=== PATIENT | female | born 1975 | race Caucasian/White ===

== ENCOUNTER 2019-07-22 21:45 | Inpatient (IN) | payer OTHER ==
[2019-07-22] MEDS ORDERED: NA CHLORIDE 0.9% 1,000 ML ONE (22:28)
[2019-07-22] MEDS ORDERED: ONDANSETRON 4 MG/2 ML VIAL ONE (22:28)
[2019-07-22 22:39] LABS: Absolute Lymphocytes (CBC) 0.8 K/uL (0.7-4.9); Basophils % 0.4 % (0-1.3); Hematocrit 23.7 % (36.0-45.0); MPV 8.8 fL (7.6-11.3); RBC Red Blood Cell Count 2.89 M/uL (3.86-4.86)
[2019-07-22 22:47] LABS: ALT/SGPT 15 U/L (12-78); AST/SGOT 13 U/L (15-37); Albumin 2.4 g/dL (3.4-5.0); Alkaline Phosphatase 46 U/L (45-117); BUN Blood Urea Nitrogen 91 mg/dL (7-18); Bicarbonate 24 mmol/L (21-32); Bilirubin Direct < 0.1 mg/dL (0-0.2); Bilirubin Total 0.2 mg/dL (0.2-1.0); Glucose Level 110 mg/dL (74-106); Lipase 330 U/L (73-393); Potassium 4.2 mmol/L (3.5-5.1); Protein, Total 6.3 g/dL (6.4-8.2); Sodium Level 139 mmol/L (136-145)
[2019-07-22 23:36] LABS: Barbiturates NEGATIVE (NEGATIVE); Benzodiazepines NEGATIVE (NEGATIVE); Cocaine NEGATIVE (NEGATIVE); METHAMPHETAM NEGATIVE (NEGATIVE); Methadone NEGATIVE (NEGATIVE); Opiates NEGATIVE (NEGATIVE); Phencyclidine NEGATIVE (NEGATIVE); THC Cannibis POSITIVE (NEGATIVE)
[2019-07-22 23:54] LABS: Urine Blood 2+ (NEG); Urine Glucose NEGATIVE (NEG); Urine Protein 2+ (NEG); Urine Specific Gravity 1.015 (1.005-1.030); Urine pH 5.5 (5.0-7.0)
[2019-07-23 00:14] LABS: Blood Morphology Comment NOT SEEN (NOT SEEN); Platelet Estimate ADEQ
[2019-07-23] MEDS ORDERED: NA CHLORIDE 0.9% 1,000 ML ONE ×3 (00:41→10:35)
--- NOTE | 2019-07-23 00:52 | ER ---
Nurse's Notes [facility] Name: Harper Whitmore Age: 43 yrs Sex: Female : 1975 Arrival Date: 07/22/2019 Time: 21:48 Bed 5 Private MD: Diagnosis: Dehydration;Acute kidney failure;Diarrhea, unspecified Presentation: 07/21 21:45 Chief complaint: Patient states: I live with 7 other people and there are 2 of them jb4 that we are not sure if they have it or not. Today I was walking around and almost past out, I have a cough but I also smoke, and have had a cough. Today I just wanted to get checked out because I don't feel right. EMS states: Pt reports nausea, vomiting, diarrhea and a cough. Pt reports having 2 roommates that tested positive for mcpherson virus, and wants to get checked. 21:45 Coronavirus screen: The patient has NOT traveled to a country currently being monitored jb4 by the [facility] within the last 14 days. Proceed with normal triage procedures. The patient has NOT had contact with any known and/or suspected case of coronavirus. Ebola Screen: No symptoms or risks identified at this time. 21:45 Method Of Arrival: EMS: [facility] jb4 21:45 Risk Assessment: Do you want to hurt yourself or someone else? Patient reports no jb4 desire to harm self or others. 21:45 Acuity: MICHAEL 3 jb4 21:45 Initial Sepsis Screen: Does the patient meet any 2 criteria? No. Patient's initial jb4 sepsis screen is negative. Does the patient have a suspected source of infection? No. Patient's initial sepsis screen is negative. 07/22 04:30 Onset of symptoms is unknown. rv Historical: - Allergies: 07/21 21:45 No Known Allergies; jb4 - Home Meds: 21:45 ferrous sulfate 325 mg (65 mg iron) Oral TbEC [Active]; furosemide 40 mg Oral tab jb4 [Active]; clonidine HCl 0.2 mg Oral tab [Active]; carvedilol 6.25 mg oral tab [Active]; - PMHx: 21:45 Hypertension; MRSA; Hernia; jb4 - PSHx: 21:45 Knee surgery; ; Hernia repair; debridement; jb4 - Immunization history:: Adult Immunizations unknown. - Social history:: Smoking status: Patient reports the use of cigarette tobacco products, smokes one pack cigarettes per day. Patient/guardian denies using alcohol, street drugs. Screenin/18 04:29 Abuse screen: Denies threats or abuse. Denies injuries from another. Nutritional rv screening: No deficits noted. Tuberculosis screening: No symptoms or risk factors identified. Fall Risk None identified. Assessment: 07/21 21:45 General: Appears in no apparent distress. uncomfortable, Behavior is calm, cooperative, jb4 appropriate for age. Pain: Complains of pain in abdomen Pain does not radiate. Pain currently is 5 out of 10 on a pain scale. Quality of pain is described as aching. Neuro: Level of Consciousness is awake, alert, obeys commands, confused, Oriented to person, place, time, situation. Cardiovascular: Patient's skin is warm and dry. Respiratory: Airway is patent Respiratory effort is even, unlabored, Respiratory pattern is regular, symmetrical. GI: Abdomen is flat, non-distended, Reports upper abdominal pain, nausea, vomiting. : No signs and/or symptoms were reported regarding the genitourinary system. EENT: No signs and/or symptoms were reported regarding the EENT system. Derm: Skin is healthy with good turgor, Skin is pink, warm \T\ dry. Musculoskeletal: Circulation, motion, and sensation intact. Range of motion: intact in all extremities. 22:45 Reassessment: Patient appears in no apparent distress at this time. Patient and/or jb4 family updated on plan of care and expected duration. Pain level reassessed. Patient is alert, oriented x 3, equal unlabored respirations, skin warm/dry/pink. 23:45 Reassessment: Pt is resting in bed with eyes closed, respirations are even and jb4 unlabored. No s/s of distress or pain are noted. 07/22 00:45 Reassessment: Patient appears in no apparent distress at this time. Patient and/or jb4 family updated on plan of care and expected duration. Pain level reassessed. Patient is alert, oriented x 3, equal unlabored respirations, skin warm/dry/pink. 01:42 Reassessment: Patient appears in no apparent distress at this time. Patient and/or jb4 family updated on plan of care and expected duration. Pain level reassessed. Patient is alert, oriented x 3, equal unlabored respirations, skin warm/dry/pink. Hospitalist is at the bedside examining patient. Vital Signs: 07/21 21:45 BP 132 / 98; Pulse 83; Resp 16; Temp 97.9(O); Pulse Ox 98% on R/A; Weight 83.01 kg (R); jb4 Height 5 ft. 5 in. (165.10 cm); Pain 5/10; 22:00 BP 147 / 99; Pulse 80; Resp 17; Pulse Ox 100% on R/A; rv 22:45 BP 153 / 100; Pulse 61; Resp 16; Pulse Ox 100% on R/A; rv 23:30 BP 151 / 77; Pulse 77; Resp 18; Pulse Ox 100% on R/A; jb4 07/22 01:00 BP 158 / 91; Pulse 73; Resp 16; Pulse Ox 99% on R/A; jb4 02:00 BP 149 / 101; Pulse 73; Resp 16; Pulse Ox 100% on R/A; jb4 07/21 21:45 Body Mass Index 30.45 (83.01 kg, 165.10 cm) jb4 ED Course: 07/21 21:45 Arm band placed on right wrist. jb4 21:48 Patient arrived in ED. jb4 21:49 Scott Delcid, ARCHIE is Primary Nurse. jb4 21:53 Alejandro Marinelli MD is Attending Physician. tw4 22:00 Triage completed. jb4 22:15 Initial lab(s) drawn, by sd, sent to lab. Inserted saline lock: 20 gauge in right jb4 antecubital area, using aseptic technique. Blood collected. 07/22 00:52 Vish Gillette MD is Hospitalizing Provider. tw4 02:13 CXR XRAY In Process Unspecified. EDMS 04:29 Patient has correct armband on for positive identification. Fall risk band placed. rv Placed in gown. electrode cleaner on. Pulse ox on. NIBP on. 04:29 No provider procedures requiring assistance completed. IV is patent, with fluids rv infusing freely, with good blood return, Patient admitted, IV remains in place. 07:26 Primary Nurse role handed off by Scott Delcid, RN bd Administered Medications: 07/21 22:54 Drug: NS 0.9% 1000 ml Route: IV; Rate: 1 bolus; Site: right antecubital; jb4 23:30 Follow up: Response: No adverse reaction; IV Status: Completed infusion; IV Intake: jb4 1000ml 22:54 Drug: Zofran (Ondansetron) 4 mg Route: IVP; Site: right antecubital; jb4 23:20 Follow up: Response: No adverse reaction; Nausea is decreased jb4 07/22 00:48 Drug: NS 0.9% 1000 ml Route: IV; Rate: 1 bolus; Site: right antecubital; jb4 02:15 Drug: Zofran (Ondansetron) 4 mg Route: IVP; Site: left antecubital; jb4 02:24 Drug: GI Cocktail without - (Maalox Suspension 30 ml, Lidocaine Liquid 2 % 15 jb4 ml) Route: PO; Intake: 07/21 23:30 IV: 1000ml; Total: 1000ml. jb4 Outcome: 07/22 00:51 Discharge ordered by MD. tw4 00:52 Decision to Hospitalize by Provider. tw4 04:29 Admitted to ER Hold. Please see [facility] for further documentation. rv 04:29 Condition: good 04:29 Discharge instructions given to patient, Instructed on the need for admit, Demonstrated understanding of instructions. 08:27 Patient left the ED. sv Signatures: Dispatcher [employer] EDMS Elle Belcher Stephanie RN Scott Nugent RN RN jb4 Wadley, Terrence, MD MD Grupo Mercado RN RN rv Corrections: (The following items were deleted from the chart) 07/21 22:00 21:45 Coronavirus screen: The patient has NOT traveled to a country currently being jb4 monitored by the [facility] within the last 14 days. Proceed with normal triage procedures. The patient HAS HAD contact with a known and/or suspected case of coronavirus. The patient DOES HAVE a fever and/or cough. Mask placed on patient and transported to a negative pressure isolation room. jb4
--- NOTE | 2019-07-23 00:54 | EDPHYS ---
Physician Documentation [facility] Name: Harper Whitmore Age: 43 yrs Sex: Female : 1975 Arrival Date: 07/22/2019 Time: 21:48 Bed 5 Private MD: ED Physician Alejandro Marinelli HPI: 07/21 22:09 This 43 yrs old Female presents to ER via EMS with complaints of N/V. tw4 22:09 The patient presents to the emergency department with nausea, that is moderate, tw4 vomiting. Onset: The symptoms/episode began/occurred today. Possible causes: unknown. The symptoms are aggravated by nothing. The symptoms are alleviated by nothing. The patient has not experienced similar symptoms in the past. Historical: - Allergies: 21:45 No Known Allergies; jb4 - Home Meds: 21:45 ferrous sulfate 325 mg (65 mg iron) Oral TbEC [Active]; furosemide 40 mg Oral tab jb4 [Active]; clonidine HCl 0.2 mg Oral tab [Active]; carvedilol 6.25 mg oral tab [Active]; - PMHx: 21:45 Hypertension; MRSA; Hernia; jb4 - PSHx: 21:45 Knee surgery; ; Hernia repair; debridement; jb4 - Immunization history:: Adult Immunizations unknown. - Social history:: Smoking status: Patient reports the use of cigarette tobacco products, smokes one pack cigarettes per day. Patient/guardian denies using alcohol, street drugs. ROS: 22:09 Constitutional: Negative for fever, chills, and weight loss, Eyes: Negative for injury, tw4 pain, redness, and discharge, Cardiovascular: Negative for chest pain, palpitations, and edema, Respiratory: Negative for shortness of breath, cough, wheezing, and pleuritic chest pain. 22:09 Abdomen/GI: Positive for nausea and vomiting, nausea, vomiting, Negative for abdominal pain, nausea, vomiting, and diarrhea, diarrhea, constipation, abdominal cramps, abdominal distension, anorexia, dysphagia, hematemesis, black/tarry stool, rectal pain, rectal bleeding. Exam: 22:09 Constitutional: This is a well developed, well nourished patient who is awake, alert, tw4 and in no acute distress. Head/Face: Normocephalic, atraumatic. Chest/axilla: Normal chest wall appearance and motion. Nontender with no deformity. No lesions are appreciated. Cardiovascular: Regular rate and rhythm with a normal S1 and S2. No gallops, murmurs, or rubs. Normal PMI, no JVD. No pulse deficits. Respiratory: Lungs have equal breath sounds bilaterally, clear to auscultation and percussion. No rales, rhonchi or wheezes noted. No increased work of breathing, no retractions or nasal flaring. Abdomen/GI: Soft, non-tender, with normal bowel sounds. No distension or tympany. No guarding or rebound. No evidence of tenderness throughout. Back: No spinal tenderness. No costovertebral tenderness. Full range of motion. MS/ Extremity: Pulses equal, no cyanosis. Neurovascular intact. Full, normal range of motion. Neuro: Awake and alert, GCS 15, oriented to person, place, time, and situation. Cranial nerves II-XII grossly intact. Motor strength 5/5 in all extremities. Sensory grossly intact. Cerebellar exam normal. Normal gait. Vital Signs: 21:45 BP 132 / 98; Pulse 83; Resp 16; Temp 97.9(O); Pulse Ox 98% on R/A; Weight 83.01 kg (R); jb4 Height 5 ft. 5 in. (165.10 cm); Pain 5/10; 22:00 BP 147 / 99; Pulse 80; Resp 17; Pulse Ox 100% on R/A; rv 22:45 BP 153 / 100; Pulse 61; Resp 16; Pulse Ox 100% on R/A; rv 23:30 BP 151 / 77; Pulse 77; Resp 18; Pulse Ox 100% on R/A; 4 07/22 01:00 BP 158 / 91; Pulse 73; Resp 16; Pulse Ox 99% on R/A; 4 02:00 BP 149 / 101; Pulse 73; Resp 16; Pulse Ox 100% on R/A; 4 07/21 21:45 Body Mass Index 30.45 (83.01 kg, 165.10 cm) [facility] MDM: 07/21 21:53 Patient medically screened. 07/21 21:53 Order name: Basic Metabolic Panel; Complete Time: 00:15 4 07/22 00:16 Interpretation: Normal except: CL 108; CRE 2.50; BUN 91; GLUC 110; GFR 21. tw07/21 21:53 Order name: CBC with Diff; Complete Time: 00:15 [facility] 07/22 00:16 Interpretation: Normal except: RBC 2.89; HGB 7.8; HCT 23.7; MCH 26.8; LYM% 10.0; JAENNE% tw4 85.7; RDW 17.9. 07/21 21:53 Order name: Creatinine for Radiology; Complete Time: 00:15 [facility] 07/22 00:16 Interpretation: Normal except: CRE 2.46; GFR 21. 07/21 21:53 Order name: Hepatic Function; Complete Time: 00:15 [facility] 07/22 00:16 Interpretation: Normal except: TP 6.3; ALB 2.4; GLOB 3.9; A/G 0.6; AST 13. 07/21 21:53 Order name: Lipase; Complete Time: 00:15 [facility] 07/22 00:17 Interpretation: Within normal limits: LIP 330. 07/21 21:56 Order name: Urine Drug Screen; Complete Time: 00:15 [facility] 07/22 00:16 Interpretation: Normal except: THC POSITIVE. 07/21 22:48 Order name: Urine Dipstick--Ancillary (enter results); Complete Time: 00:15 [facility] 07/22 00:17 Interpretation: Normal except: UPROT 2+; UBLD 2+. 07/21 22:48 Order name: Urine --Ancillary (enter results); Complete Time: 00:15 [facility] 07/22 00:17 Interpretation: Within normal limits: URINE PREG NEG. 07/21 23:11 Order name: Manual Differential; Complete Time: 00:15 [facility] 07/22 00:17 Interpretation: Normal except: SEGS 85; LYM 12. 07/22 02:29 Order name: Type and Screen EDMI 07/22 02:29 Order name: Ferritin EDMI 07/22 02:29 Order name: Transferrin Sat/Iron Binding EDMI 07/22 02:29 Order name: Comprehensive Metabolic Panel EDMI 07/22 02:29 Order name: Comprehensive Metabolic Panel EDMI 07/22 01:43 Order name: CXR XRAY tw 07/22 02:29 Order name: CONS Pharmacy Consult EDMI 07/22 02:29 Order name: CONS Pharmacy Consult EDMS 07/22 02:29 Order name: CONS Physician Consult EDMS 07/22 02:29 Order name: Heart Healthy EDMS 07/22 02:29 Order name: EKG Electrocardiogram EDMS 07/22 02:29 Order name: EKG Electrocardiogram EDMS 07/22 02:29 Order name: Occult Blood EDMS 07/22 02:31 Order name: UR CREAT EDMS 07/22 02:31 Order name: UR SODIUM EDMS 07/22 04:23 Order name: ABO/RH no charge EDMS 07/21 21:53 Order name: IV Saline Lock; Complete Time: 22:17 tw4 07/21 21:53 Order name: Labs collected and sent; Complete Time: 22:17 tw4 07/21 21:56 Order name: Urine Dipstick-Ancillary (obtain specimen); Complete Time: 22:42 tw4 07/22 02:29 Order name: EKG Electrocardiogram EDMS 07/22 02:29 Order name: EKG Electrocardiogram EDMS 07/22 02:31 Order name: EKG Electrocardiogram EDMS 07/22 02:31 Order name: EKG Electrocardiogram EDMS 07/22 02:31 Order name: EKG Electrocardiogram EDMS 07/22 02:31 Order name: EKG Electrocardiogram EDMS 07/22 02:31 Order name: EKG Electrocardiogram EDMS 07/22 02:31 Order name: EKG Electrocardiogram EDMS 07/22 02:31 Order name: EKG Electrocardiogram EDMS Administered Medications: 22:54 Drug: NS 0.9% 1000 ml Route: IV; Rate: 1 bolus; Site: right antecubital; jb4 23:30 Follow up: Response: No adverse reaction; IV Status: Completed infusion; IV Intake: jb4 1000ml 22:54 Drug: Zofran (Ondansetron) 4 mg Route: IVP; Site: right antecubital; jb4 23:20 Follow up: Response: No adverse reaction; Nausea is decreased jb4 07/22 00:48 Drug: NS 0.9% 1000 ml Route: IV; Rate: 1 bolus; Site: right antecubital; jb4 02:15 Drug: Zofran (Ondansetron) 4 mg Route: IVP; Site: left antecubital; jb4 02:24 Drug: GI Cocktail without - (Maalox Suspension 30 ml, Lidocaine Liquid 2 % 15 jb4 ml) Route: PO; Disposition: 07/23/19 00:52 Hospitalization ordered by Vish Gillette for Inpatient Admission. Preliminary diagnosis are Dehydration, Acute kidney failure, Diarrhea, unspecified. - Bed requested for Telemetry/MedSurg (Inpatient). - Status is Inpatient Admission. sv - Condition is Stable. - Problem is new. - Symptoms are unchanged. Signatures: Dispatcher [employer] Louisa Bolden RN RN sv Webb, Martha, RN RN mw Bryson, James, RN RN jb4 Alejandro Marinelli MD MD tw4 Corrections: (The following items were deleted from the chart) 00:52 00:51 07/23/2019 00:51 Discharged to Home. Impression: Diarrhea, unspecified; Acute tw4 kidney failure; Dehydration. Condition is Stable. Forms are Medication Reconciliation Form, Thank You Letter, Antibiotic Education, Prescription Opioid Use. Follow up: Private Physician; When: Upon discharge from the Emergency Department; Reason: Recheck today's complaints, Continuance of care, Re-evaluation by your physician. Problem is new. Symptoms have improved. tw4 03:08 00:52 Hospitalization Ordered by Vish Gillette MD for Inpatient Admission. Preliminary diagnosis is Dehydration; Acute kidney failure; Diarrhea, unspecified. Bed requested for Telemetry/MedSurg (Inpatient). Status is Inpatient Admission. Condition is Stable. Problem is new. Symptoms are unchanged. tw4 05:49 03:08 07/23/2019 00:52 Hospitalization Ordered by Vish Gillette MD for Inpatient Admission. Preliminary diagnosis is Dehydration; Acute kidney failure; Diarrhea, unspecified. Bed requested for [facility] ER HOLD. Status is Inpatient Admission. Condition is Stable. Problem is new. Symptoms are unchanged. 08:27 05:49 07/23/2019 00:52 Hospitalization Ordered by Vish Gillette MD for Inpatient sv Admission. Preliminary diagnosis is Dehydration; Acute kidney failure; Diarrhea, unspecified. Bed requested for Telemetry/MedSurg (Inpatient). Status is Inpatient Admission. Condition is Stable. Problem is new. Symptoms are unchanged.
[2019-07-23] MEDS ORDERED: ONDANSETRON 4 MG/2 ML VIAL ONE (02:13)
[2019-07-23] MEDS ORDERED: MAGNE/ALUM HYDROXD 30 ML UCUP ONE (02:21)
[2019-07-23] MEDS ORDERED: LIDOCAINE VISCOUS 2% SOLN 15 ML UDC ONE (02:22)
[2019-07-23] MEDS ORDERED: ONDANSETRON 4 MG/2 ML VIAL IV PRN ×3 (02:23→19:39)
[2019-07-23] MEDS ORDERED: LORAZEPAM 0.5 MG TABLET PO PRN (02:26)
[2019-07-23] MEDS ORDERED: HYDRALAZINE HCL 20 MG/ML VIAL IV PRN (02:26)
[2019-07-23] MEDS ORDERED: GUAIFENESIN/DM 5 ML UCUP PO PRN (02:26)
[2019-07-23] MEDS ORDERED: ALBUTEROL 2.5 MG/3 ML NEB SOL NEB PRN (02:26)
--- NOTE | 2019-07-23 02:35 | P.HP ---
Certification for Inpatient With expected LOS: >2 Midnights Patient will require the following post-hospital care: None Practitioner: I am a practitioner with admitting privileges, knowledge of patient current condition, hospital course, and medical plan of care. Services: Services provided to patient in accordance with Admission requirements found in Title 42 Section 412.3 of the Code of Federal Regulations Patient History Date of Service: 07/23/19 Reason for admission: Cough dizziness History of Present Illness: 43-year-old female with history of hypertension, states she was previously homeless but recently started taking her blood pressure medication 1 - week ago presents to the hospital today because of feeling of dizziness, with transient Vertigo today. She also had series of loose bowel movement but no overt diarrhea. She admits to some nausea with 1 episode of vomiting today. She denies any history of kidney injury in the past. On arrival in the ED she was noted with elevated creatinine of 2.5 with BUN of 94 she has been admitted for acute renal failure. She also had low hemoglobin of 7.8. She denies any hematochezia Home medications list reviewed: No - Past Medical/Surgical History Has patient received pneumonia vaccine in the past: No Diabetic: No -: Hypertension -: Medication nonadherence Past Surgical History: Patient denies surgical history Psychosocial/ Personal History: initially homelessbut currently working on disability - Social History Smoking Status: Current every day smoker Counseled patient to stop smoking for: more than 10 minutes Smoking therapy provided: Yes Patient receptive to therapy: Yes Alcohol use: No CD- Drugs: Yes Review of Systems General: Weakness, Unremarkable Eyes: Unremarkable Respiratory: Cough, Other (History of contact with someone recently positive for covid 19) Gastrointestinal: Nausea, Vomiting Genitourinary: Unremarkable Musculoskeletal: Unremarkable Integumentary: Unremarkable Neurological: Weakness Physical Examination - Physical Exam General: Alert, In no apparent distress, Oriented x3, Obese HEENT: Atraumatic, Normocephalic, PERRLA Neck: 2+ carotid pulse no bruit, JVD not distended Respiratory: Clear to auscultation bilaterally, Crackles/rales (few) Cardiovascular: Regular rate/rhythm, Normal S1 S2 Capillary refill: <2 Seconds Gastrointestinal: Normal bowel sounds, Soft and benign, Non-distended Musculoskeletal: No clubbing, No swelling, No contractures Integumentary: No rashes, No breakdown Neurological: Normal gait, Normal speech, Normal strength at 5/5 x4 extr External genitalia: No edema, No lesions - Studies Laboratory Data (last 24 hrs) 07/22/19 22:15: Creatinine 2.46 H 07/22/19 22:15: WBC 7.9, Hgb 7.8 L*, Hct 23.7 L, Plt Count 194 07/22/19 22:15: Sodium 139, Potassium 4.2, BUN 91 H, Creatinine 2.50 H, Glucose 110 H, Total Bilirubin 0.2, AST 13 L, ALT 15, Alkaline Phosphatase 46, Lipase 330 Assessment and Plan - Problems (Diagnosis) (1) ARF (acute renal failure) Current Visit: Yes Status: Acute (2) Anemia Current Visit: Yes Status: Acute (3) HTN (hypertension) Current Visit: Yes Status: Acute Discharge Plan: Home Plan to discharge in: 48 Hours - Advance Directives Does patient have a Living Will: No Does patient have a Durable POA for Healthcare: No - Code Status/Comfort Care Code Status Assessed: Yes Code Status: Full Code Physician Review: Patient Assessed, Agree with Above Assessment and Plan Physician Review Additional Text: # acute renal failure-likely due to pre in a given marked elevation in BUN -obtain a urine sodium/creatinine to calculate fraction excretion of sodium. -start gentle IV fluid with normal saline follow-up -will consult Nephrology to follow in a.m. - urinalysis positive for protein, may need random urine protein creatinine ratio # anemia-unclear etiology - will obtain stool for Occult blood --obtain iron profile may need IV iron loading -follow repeat H and H if trended down would need PRBC -we will type and cross 2 units # hypertension-resume home regimen of clonidine/amlodipine Dex IV hydralazine p.r.n. # DVT prophylaxis-subcutaneous Lovenox for now # history of exposure to covid 19-since absence of fever will hold off testing for now -we will obtain a chest x-ray
[2019-07-23] MEDS ORDERED: NA CHLORIDE 0.9% 250 ML IV SCH (03:00)
[2019-07-23] MEDS: NA CHLORIDE 0.9% 1,000 ML IV SCH ×2 (03:00→10:31)
[2019-07-23 03:51] LABS: Ferritin 17.7 ng/mL (8-388)
[2019-07-23 04:10] VITALS: BMI 30.4
[2019-07-23] MEDS ORDERED: PANTOPRAZOLE 40MG TABLET PO SCH (07:30)
--- NOTE | 2019-07-23 08:52 | RAD REPORT ---
EXAM DESCRIPTION: RAD - Chest Single View - 07/23/2019 2:11 am CLINICAL HISTORY: COUGH Chest pain. COMPARISON: No comparisons FINDINGS: Portable technique limits examination quality. The lungs are grossly clear. The heart is normal in size. No displaced fractures. IMPRESSION: No acute intrathoracic process suspected.
[2019-07-23] MEDS ORDERED: ENOXAPARIN 30 MG/0.3 ML SQ SCH (09:00)
[2019-07-23] MEDS ORDERED: NICOTINE 21 MG/PAT TD SCH (09:00)
[2019-07-23] MEDS ORDERED: GUAIFENESIN 600 MG SA TAB PO SCH (09:00)
[2019-07-23] MEDS ORDERED: AMLODIPINE 10 MG TAB PO SCH (09:00)
[2019-07-23] MEDS ORDERED: cloNIDine HCL 0.1 MG TAB PO SCH (09:00)
[2019-07-23 09:30] VITALS: O2SAT 100
[2019-07-23 09:38] LABS: Absolute Lymphocytes (CBC) 0.9 K/uL (0.7-4.9); Basophils % 0.3 % (0-1.3); Hematocrit 14.6 % (36.0-45.0); Lymphocytes % 17.9 % (15.3-44.8); MPV 8.2 fL (7.6-11.3); RBC Red Blood Cell Count 1.78 M/uL (3.86-4.86)
[2019-07-23 09:48] LABS: Albumin 1.9 g/dL (3.4-5.0); Bilirubin Total 0.1 mg/dL (0.2-1.0); Potassium 3.7 mmol/L (3.5-5.1); Protein, Total 4.5 g/dL (6.4-8.2)
[2019-07-23 10:04] LABS: Hematocrit 15.2 % (36.0-45.0)
[2019-07-23] MEDS ORDERED: FUROSEMIDE 20 MG/ 2ML VIAL IV PRN ×2 (10:17→21:00)
--- NOTE | 2019-07-23 10:24 | RAD REPORT ---
EXAM DESCRIPTION: CT - Head Brain Wo Cont - 07/23/2019 10:11 am CLINICAL HISTORY: s/p fall, head trauma, headache COMPARISON: No comparisons TECHNIQUE: Axial 5 mm thick images of the head were obtained without IV contrast. All CT scans are performed using dose optimization technique as appropriate and may include automated exposure control or mA/KV adjustment according to patient size. FINDINGS: No intracranial hemorrhage, mass, edema or shift of mid-line structures. No acute infarcti on changes seen. No abnormal extra-axial fluid collections. Ventricles are normal. No measurable scal p hematoma. No globe or orbital content injury evident. Mastoid air cells are clear. Polyp or retention cyst in the left maxillary sinus. No acute bony findings. IMPRESSION: No hemorrhage or other acute intracranial finding. No skull fracture or measurable scalp hematoma.
--- NOTE | 2019-07-23 10:29 | RAD REPORT ---
EXAM DESCRIPTION: RAD - Hip Bilateral With Pelvis - 07/23/2019 10:12 am CLINICAL HISTORY: Fall, pelvic and hip pain COMPARISON: None. TECHNIQUE: AP view of the pelvis and hip joints was obtained with frogleg views of each hip joint. FINDINGS: There is a thin lucent line present in the right acetabulum the cannot be confirmed as bon es summation artifact. Nondisplaced fracture of the acetabulum is suspected and follow-up thin sectio n CT imaging of the right hip joint is recommended. The patient also has advanced for age degenerativ e change at the right hip joint. AVN is not suspected. Elsewhere the pelvis is intact. No left hip joint or proximal left femur abnormality seen. IMPRESSION: Suspected nondisplaced fracture of the right acetabulum. Correlation is needed with righ t hip symptoms. Follow-up thin section CT imaging of the hip joint could be performed to evaluate for fracture versus summation artifact.
[2019-07-23] MEDS ORDERED: PANTOPRAZOLE INJ 80 MG in NA CHLORIDE 0.9% 250 ML IV SCH (12:00)
[2019-07-23] MEDS ORDERED: PANTOPRAZOLE 40 MG INJ IVP ONE (12:05)
[2019-07-23] MEDS ORDERED: SODIUM CHLORIDE 0.9% 10ML INJ IV PRN (12:05)
[2019-07-23 12:09] LABS: Protime INR 1.01
--- NOTE | 2019-07-23 12:30 | RAD REPORT ---
EXAM DESCRIPTION: CT - Hip Right Wo Con - 07/23/2019 12:20 pm CLINICAL HISTORY: right acetabulum fracture Right hip pain COMPARISON: No comparisons FINDINGS: Bony fragmentation is seen along the superior aspect of the right acetabulum. The fragment s appear well corticated favoring that this does not represent an acute finding. 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 An acute fracture is not identified. No dis location seen. No CT finding to indicate AVN. IMPRESSION: No acute fracture is seen. There is moderate degenerative change involving the right hip with corticated bony fragments about the superior acetabulum likely related to previous injury or ar thritis. All CT scans are performed using dose optimization technique as appropriate and may include automated exposure control or mA/KV adjustment according to patient size.
[2019-07-23] MEDS: MORPHINE 2 MG/ML SYR IV PRN ×2 (14:43→20:07)
[2019-07-23] MEDS ORDERED: POTASSIUM CL SA 10 MEQ TAB PO ONE (15:00)
[2019-07-23] MEDS ORDERED: SOD FERRIC GLUC COMPLX/SUCROSE 250 MG in NA CHLORIDE 0.9% 250 ML IV SCH (15:00)
--- NOTE | 2019-07-23 15:30 | RAD REPORT ---
EXAM DESCRIPTION: US - Renal Ultrasound-Complete - 07/23/2019 2:56 pm CLINICAL HISTORY: CHILO COMPARISON: No comparisons FINDINGS: Both kidneys show prominent echogenic cortical tissue. Renal margins are poorly defined, p articularly on the left. Right kidney is grossly 10.5 x 5 x 5 cm. Left kidney is grossly 11 x 6 x 5 c m. No hydronephrosis identifiable. No measurable mass lesion of either kidney. Urinary bladder is mostly contracted. No gross abnormality seen. IMPRESSION: Significant bilateral medical renal disease. No hydronephrosis is identified. Detail is limited due to the medical renal disease and body habitus. Mass lesion not suspected.
[2019-07-23] MEDS ORDERED: NA CHLORIDE 0.9% 250 ML ONE (15:43)
--- NOTE | 2019-07-23 19:03 | CON ---
Date of Consultation: 07/23/2019 Reason For Consultation: Elevated BUN and creatinine, fluid management. History Of Present Illness: This is a pleasant 43-year-old female with significant past medical history of hypertension. Apparently, the patient was homeless recently, started taking her medication, then started having dizziness and weakness. Patient came to the hospital, found to have elevation in BUN and creatinine. For that reason, we have been consulted. Patient has been taking ibuprofen on and off. Denies any nausea, any vomiting. Primary workup shows significant anemia with elevation of creatinine at 2.5. There is no recent exposure to contrast reviewing the record for the patient. Patient denied any fever, any chills. Past Medical History: Hypertension. Past Surgical History: Negative. Family History: Positive for hypertension. Social History: Active smoker. Active alcohol. Denies drug abuse. Review of Systems: head and neck no headache, has dizziness. GI: No nausea, no vomiting. : No polyuria, no dysuria, no hematuria. 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 Respiratory: No shortness of breath. Cardiovascular: No chest pain. Endocrine: No polydipsia. Skin: No rash. Neuro: Has dizziness. Musculoskeletal: Generalized fatigue. Physical Examination: Vital Signs: When I saw the patient, blood pressure of 140/88, pulse of 84. The patient had good urine output. Chest: Clear to auscultation. Heart: S1, S2. Systolic murmur. Abdomen: Soft, nontender. Extremities: Trace of edema. Laboratory Data: H and H 5.2/15.2, WBC 5, platelets 153. Sodium 143, potassium 3.7, bicarb 23, BUN 95, creatinine 2.1, GFR 25, calcium 7. T-sat of 15, ferritin of 17. No any previous lab data in the record. Upon admission, creatinine 2.5, GFR 21. No eosinophilia. Urinalysis, +2 protein. Urine drug screen, positive for THC. Current Medications: The patient is on, include: 1. Amlodipine. 2. Clonidine. 3. Pantoprazole. 4. IV hydration. Assessment And Plan: 1. Acute kidney injury on chronic kidney disease, unknown etiology, possible chronic kidney disease with slow progression, superimposed with nonsteroidal use. Given the significant anemia for the patient, I am going to go ahead and send for serum protein electrophoresis to rule out any light chain disease. We will send full serology for the patient. We will avoid any LUANA inhibitor and ARB. Continue IV hydration to rule out any acute component of prerenal and we will monitor the patient. I am going to send for renal ultrasound and PTH to evaluate the chronicity of the disease. 2. Iron-deficiency anemia. I agree with fecal occult. We will start the patient on intravenous iron and we will follow up the patient. 3. Hypertension, controlled currently. We will follow up with the primary. Keep avoiding any LUANA inhibitor or ARB. I agree with calcium channel antonino. 4. Proteinuria with the presence of the anemia and acute kidney injury. Light chain disease needs to be ruled out, especially that the patient UA +2 protein. We will quantify the proteinuria and we will follow up. 5. Hypokalemia. I will supplement cautiously and we will follow up. Thank you Dr. Machado, for allowing us to participate in the care of your patient. ZACH Voice ID: [id number] Report ID: [id number] SONNY
[2019-07-23] MEDS ORDERED: FUROSEMIDE 20 MG/ 2ML VIAL IV ONE (19:44)
[2019-07-23 20:08] VITALS: BP 142/84; TEMP 98
--- NOTE | 2019-07-24 01:42 | DS ---
Date of Discharge: 07/23/2019 Admitting Diagnoses: 1.Acute kidney injury. 2.Acute anemia. 3.Essential hypertension. Discharge Diagnoses: 1.Acute kidney injury. 2.Dizziness secondary to high blood loss. 3.Acute blood loss anemia secondary to gastrointestinal bleed. 4.Gastrointestinal bleed. 5.Essential hypertension. 6.Iron deficiency anemia. Hospital Course: Patient is a 43-year-old female with past medical history of hypertension, previous ly homeless, now taking her blood pressure medications 1 week ago, came in with dizziness and vertigo . Patient was noted to have hematochezia in the hospital. Her hemoglobin dropped from 7.8-4.8. She was transfused 2 units of PRBCs as there was no GI available. Patient was referred for higher level of care to [facility]. Spoke with GI physician on-call as well as hospitalist who accepted the patient. Patient was switched over to Protonix drip. The patient's kidney function did improve slightly to 2.14 with IV fluids. She likely has possibly chronic kidney disease due to her [facility] hypertension, which has gone untreated versus acute kidney injury at this point is unknown. Iram cowart did have a fall in the hospital. Her head CT scan was negative for any acute hemorrhage. Initi ally, the pelvis x-ray showed possible right-sided fracture and CT of the hip was done, which did not show any acute fracture, did show moderate degenerative change involving the right hip with corticat ed bony fragments about the superior acetabulum likely related to previous injury or arthritis. Latonya dixon was then accepted for transfer and was discharged in a stable condition. The plan will be to tra nsfer to [facility] once bed is available. Physical Examination: General: Awake, alert, oriented x3, not in any acute distress. CV: S1, S2. Respiratory: Moving air well bilaterally. Abdomen: Abdomen is soft, nontender, nondistended. Positive bowel sounds. Extremities: No clubbing, cyanosis, or edema. Total time spent transferring the patient was 46 minutes. SA/MODL Voice ID: [id number] Report ID: [id number]
== END 2019-07-23 21:40 | disposition short-term general hospital (02) | DRG 683 ==
LOC: ER 21:45 → 3RD-ICU 07-23 02:52 → ERHOLD 07-23 03:21 → 2ND 07-23 07:46
PROVIDERS: ADMIT Internal Medicine; ATTEND Internal Medicine
PROC: 30233N1 Transfusion of Nonautologous Red Blood Cells into Peripheral Vein, Percutaneous Approach (ICD-10-PCS; principal; 2019-07-23)
DX: N17.9 Acute kidney failure, unspecified (principal); D62 Acute posthemorrhagic anemia; K92.2 Gastrointestinal hemorrhage, unspecified; R42 Dizziness and giddiness; I12.9 Hypertensive chronic kidney disease with stage 1 through stage 4 chronic kidney disease, or unspecified chronic kidney disease; N18.9 Chronic kidney disease, unspecified; D50.9 Iron deficiency anemia, unspecified; R80.9 Proteinuria, unspecified; E87.6 Hypokalemia; Z20.828 Contact with and (suspected) exposure to other viral communicable diseases
CPT/HCPCS: 36415; 36430; 70450; 71045; 73521; 73700; 76770; 80048; 80053; 80076; 80307; 81003; 81025; 82553; 82570; 82728; 82947; 83540; 83690; 84300; 84466; 85014; 85018; 85025; 85610; 86850; 86900; 86901; 96361; 96374; 99285; C9113; J1940; J2270; J2405; J2916; J7030; P9016

== ENCOUNTER 2019-08-05 10:49 | Inpatient (IN) | payer SELFPAY ==
[2019-08-05 11:35] LABS: Basophils % 0.9 % (0-1.3); Hematocrit 21.2 % (36.0-45.0); Lymphocytes % 14.8 % (15.3-44.8); MPV 8.1 fL (7.6-11.3); RBC Red Blood Cell Count 2.44 M/uL (3.86-4.86)
[2019-08-05] MEDS ORDERED: ONDANSETRON 4 MG/2 ML VIAL ONE (11:35)
[2019-08-05] MEDS ORDERED: MORPHINE 4 MG/ML SYR ONE (11:35)
[2019-08-05] MEDS ORDERED: PANTOPRAZOLE 40 MG INJ ONE ×2 (11:35→22:41)
[2019-08-05] MEDS ORDERED: NA CHLORIDE 0.9% 1,000 ML ONE (11:36)
[2019-08-05 11:43] LABS: Protime INR 0.97
[2019-08-05] MEDS ORDERED: PANTOPRAZOLE INJ 80 MG in NA CHLORIDE 0.9% 250 ML IV ONE (11:45)
--- NOTE | 2019-08-05 11:49 | ER ---
Nurse's Notes [facility] Name: Kimberley Whitmore Age: 43 yrs Sex: Female : 1975 Arrival Date: 08/05/2019 Time: 10:48 Bed 27 Private MD: Diagnosis: Gastrointestinal hemorrhage, unspecified;Anemia, unspecified;Essential (primary) hypertension;Unspecified kidney failure-insufficency;Tobacco abuse counseling;Tobacco use Presentation: 08/04 10:48 Chief complaint: EMS states: VOMITING SINCE AM, NOT WITNESSED BY EMS. Coronavirus bp screen: Patient denies fever greater than 100.4F, cough, shortness of breath, or difficulty breathing. Proceed with normal triage process. Ebola Screen: No symptoms or risks identified at this time. Initial Sepsis Screen: Does the patient meet any 2 criteria? No. Patient's initial sepsis screen is negative. Does the patient have a suspected source of infection? No. Patient's initial sepsis screen is negative. Risk Assessment: Do you want to hurt yourself or someone else? Patient reports no desire to harm self or others. 10:48 Method Of Arrival: EMS: [facility] bp 10:48 Acuity: MICHAEL 3 bp 14:23 Onset of symptoms was August 05, 2019 at 06:00. bp Triage Assessment: 10:48 General: Appears in no apparent distress. comfortable, obese, Behavior is cooperative, bp appropriate for age, anxious. Pain: Denies pain. EENT: No deficits noted. Neuro: No deficits noted. Cardiovascular: No deficits noted. Respiratory: No deficits noted. GI: Reports vomiting. : No signs and/or symptoms were reported regarding the genitourinary system. Derm: No deficits noted. Musculoskeletal: No deficits noted. 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 - Social history:: Smoking status: Patient reports the use of cigarette tobacco products, unknown amount. Screenin:53 Abuse screen: Denies threats or abuse. Denies injuries from another. Nutritional bp screening: No deficits noted. Tuberculosis screening: No symptoms or risk factors identified. Fall Risk None identified. Assessment: 10:53 General: SEE TRIAGE NOTE. bp 11:58 Reassessment: CONSENT FOR PRBC SIGNED AND WITNESSED. bp 13:00 Reassessment: PRBC TRANSFUSION INITIATED. bp 13:00 GI: Abdomen is non-distended. bp 14:23 Reassessment: ADMIT COMPLETE. TRANSPORT PENDING. bp Vital Signs: 10:48 BP 188 / 98; Pulse 87; Resp 16; Temp 97.7; Pulse Ox 98% ; Weight 79.38 kg; bp 11:30 BP 171 / 98; Pulse 70; Resp 17; Pulse Ox 100% ; bp 12:30 BP 113 / 76; Pulse 74; Resp 16; Pulse Ox 100% ; bp 13:00 BP 154 / 92; Pulse 74; Resp 17; Temp 98.4; Pulse Ox 95% ; bp 14:00 BP 175 / 99; Pulse 64; Resp 17; Temp 98.1; Pulse Ox 100% ; bp ED Course: 10:48 Patient arrived in ED. bp 10:48 Arm band placed on. bp 10:49 Triage completed. bp 10:49 Salinas Angel MD is Attending Physician. garry 10:53 Patient has correct armband on for positive identification. Bed in low position. Call bp light in reach. Side rails up X2. 11:14 Greg Cabrera RN is Primary Nurse. bp 11:25 Inserted saline lock: 18 gauge in right forearm, using aseptic technique. Blood bp collected. 11:48 Hemant Machaod MD is Hospitalizing Provider. garry 11:56 XRAY Chest (1 view) In Process Unspecified. EDMS 12:45 Inserted saline lock: 24 gauge in right hand, using aseptic technique. bp 12:47 Bb Add On Sent. bp 14:19 No provider procedures requiring assistance completed. Patient admitted, IV remains in bp place. Administered Medications: 11:30 Drug: NS 0.9% 1000 ml Route: IV; Rate: 1 bolus; Site: right forearm; bp 12:48 Follow up: IV Status: Completed infusion; IV Intake: 1000ml bp 11:30 Drug: ProTONIX 80 mg Route: IVP; Site: right forearm; bp 12:48 Follow up: Response: No adverse reaction bp 11:30 Drug: morphine 4 mg Route: IVP; Site: right forearm; bp 12:47 Follow up: Response: Pain is decreased bp 11:30 Drug: Zofran (Ondansetron) 4 mg Route: IVP; Site: right wrist; bp 12:47 Follow up: Response: No adverse reaction bp 12:45 Drug: ProTONIX 8 mg/hr Route: IV; Rate: 25 ml/hr; Site: right hand; bp Intake: 12:48 IV: 1000ml; Total: 1000ml. bp Outcome: 11:48 Decision to Hospitalize by Provider. garry 14:19 Admitted to Tele accompanied by tech, via stretcher, room 225, with chart, Report bp called to LARA RN 14:19 Condition: stable 14:19 Instructed on the need for admit. 15:02 Patient left the ED. bp Signatures: Dispatcher [employer] Salinas Jackson MD MD cha Peltier, Brian, RN RN bp
--- NOTE | 2019-08-05 11:50 | EDPHYS ---
Physician Documentation [facility] Name: Kimberley Whitmore Age: 43 yrs Sex: Female : 1975 Arrival Date: 08/05/2019 Time: 10:48 Bed 27 Private MD: DIONICIO Physician Salinas Angel HPI: 08/04 11:11 This 43 yrs old Female presents to ER via EMS with complaints of Vomiting. garry 11:11 The patient presents to the emergency department with nausea, vomiting, abdominal pain, garry of the epigastric area, right upper quadrant and left upper quadrant. Onset: The symptoms/episode began/occurred just prior to arrival, this morning. Possible causes: unknown. The symptoms are aggravated by nothing. The symptoms are alleviated by nothing. Associated signs and symptoms: The patient has no apparent associated signs or symptoms. Severity of symptoms: At their worst the symptoms were mild in the emergency department the symptoms have improved. The patient has experienced similar episodes in the past, several times. 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 - Social history:: Smoking status: Patient reports the use of cigarette tobacco products, unknown amount. ROS: 11:12 Constitutional: Negative for fever, chills, and weight loss, Eyes: Negative for injury, garry pain, redness, and discharge, ENT: Negative for injury, pain, and discharge, Neck: Negative for injury, pain, and swelling, Cardiovascular: Negative for chest pain, palpitations, and edema, Respiratory: Negative for shortness of breath, cough, wheezing, and pleuritic chest pain, Back: Negative for injury and pain, : Negative for injury, bleeding, discharge, and swelling, MS/Extremity: Negative for injury and deformity, Skin: Negative for injury, rash, and discoloration, Neuro: Negative for headache, weakness, numbness, tingling, and seizure. 11:12 Abdomen/GI: Positive for abdominal pain, of the epigastric area, right upper quadrant and left upper quadrant. Exam: 11:12 Constitutional: This is a well developed, well nourished patient who is awake, alert, garry and in no acute distress. Head/Face: Normocephalic, atraumatic. Eyes: Pupils equal round and reactive to light, extra-ocular motions intact. Lids and lashes normal. Conjunctiva and sclera are non-icteric and not injected. Cornea within normal limits. Periorbital areas with no swelling, redness, or edema. ENT: Nares patent. No nasal discharge, no septal abnormalities noted. Tympanic membranes are normal and external auditory canals are clear. Oropharynx with no redness, swelling, or masses, exudates, or evidence of obstruction, uvula midline. Mucous membranes moist. Neck: Trachea midline, no thyromegaly or masses palpated, and no cervical lymphadenopathy. Supple, full range of motion without nuchal rigidity, or vertebral point tenderness. No Meningismus. Chest/axilla: Normal chest wall appearance and motion. Nontender with no deformity. No lesions are appreciated. Cardiovascular: Regular rate and rhythm with a normal S1 and S2. No gallops, murmurs, or rubs. Normal PMI, no JVD. No pulse deficits. Respiratory: Lungs have equal breath sounds bilaterally, clear to auscultation and percussion. No rales, rhonchi or wheezes noted. No increased work of breathing, no retractions or nasal flaring. Back: No spinal tenderness. No costovertebral tenderness. Full range of motion. Female : Normal external genitalia. Skin: Warm, dry with normal turgor. Normal color with no rashes, no lesions, and no evidence of cellulitis. MS/ Extremity: Pulses equal, no cyanosis. Neurovascular intact. Full, normal range of motion. Neuro: Awake and alert, GCS 15, oriented to person, place, time, and situation. Cranial nerves II-XII grossly intact. Motor strength 5/5 in all extremities. Sensory grossly intact. Cerebellar exam normal. Normal gait. Psych: Awake, alert, with orientation to person, place and time. Behavior, mood, and affect are within normal limits. 11:12 Abdomen/GI: Inspection: abdomen appears normal, Bowel sounds: normal, active, Rectal exam: Stool: guaiac positive, trace positive, no melena, Liver: no appreciated palpable abnormalities, Hernia: not appreciated. Vital Signs: 10:48 BP 188 / 98; Pulse 87; Resp 16; Temp 97.7; Pulse Ox 98% ; Weight 79.38 kg; bp 11:30 BP 171 / 98; Pulse 70; Resp 17; Pulse Ox 100% ; bp 12:30 BP 113 / 76; Pulse 74; Resp 16; Pulse Ox 100% ; bp 13:00 BP 154 / 92; Pulse 74; Resp 17; Temp 98.4; Pulse Ox 95% ; bp 14:00 BP 175 / 99; Pulse 64; Resp 17; Temp 98.1; Pulse Ox 100% ; bp MDM: 10:49 Patient medically screened. [facility] 11:12 Data reviewed: vital signs, nurses notes, lab test result(s), EKG, radiologic studies, garry plain films. 08/04 11:10 Order name: Basic Metabolic Panel; Complete Time: 11:58 [facility] 08/04 11:10 Order name: CBC with Diff; Complete Time: 11:46 [facility] 08/04 11:10 Order name: LFT's; Complete Time: 11:58 [facility] 08/04 11:10 Order name: Magnesium; Complete Time: 11:58 [facility] 08/04 11:10 Order name: NT PRO-BNP; Complete Time: 11:58 [facility] 08/04 11:10 Order name: PT-INR; Complete Time: 11:56 [facility] 08/04 11:10 Order name: Troponin (emerg Dept Use Only); Complete Time: 11:58 [facility] 08/04 11:10 Order name: XRAY Chest (1 view) [facility] 08/04 11:10 Order name: Lipase; Complete Time: 11:58 [facility] 08/04 11:10 Order name: Type And Screen [facility] 08/04 11:53 Order name: Bb Add On bd 08/04 12:02 Order name: Packed RBC Leukored EDMS 08/04 12:29 Order name: Urine Dipstick--Ancillary (enter results) [facility] 08/04 12:29 Order name: Urine --Ancillary (enter results) [facility] 08/04 11:10 Order name: EKG; Complete Time: 11:12 [facility] 08/04 11:10 Order name: Cardiac monitoring; Complete Time: 11:15 [facility] 08/04 11:10 Order name: EKG - Nurse/Tech; Complete Time: 11:28 [facility] 08/04 11:10 Order name: IV Saline Lock; Complete Time: 11:28 [facility] 08/04 11:10 Order name: Labs collected and sent; Complete Time: 11:27 [facility] 08/04 11:10 Order name: O2 Per Protocol; Complete Time: 11:15 [facility] 08/04 11:10 Order name: O2 Sat Monitoring; Complete Time: 11:15 [facility] 08/04 11:11 Order name: Urine Dipstick-Ancillary (obtain specimen); Complete Time: 12:24 [facility] 08/04 11:11 Order name: Urine Test (obtain specimen); Complete Time: 12:24 [facility] 08/04 11:39 Order name: Transfuse; Complete Time: 13:52 [facility] 08/04 11:58 Order name: IV - Large Bore; Complete Time: 12:46 [facility] Administered Medications: 11:30 Drug: NS 0.9% 1000 ml Route: IV; Rate: 1 bolus; Site: right forearm; bp 12:48 Follow up: IV Status: Completed infusion; IV Intake: 1000ml bp 11:30 Drug: ProTONIX 80 mg Route: IVP; Site: right forearm; bp 12:48 Follow up: Response: No adverse reaction bp 11:30 Drug: morphine 4 mg Route: IVP; Site: right forearm; bp 12:47 Follow up: Response: Pain is decreased bp 11:30 Drug: Zofran (Ondansetron) 4 mg Route: IVP; Site: right wrist; bp 12:47 Follow up: Response: No adverse reaction bp 12:45 Drug: ProTONIX 8 mg/hr Route: IV; Rate: 25 ml/hr; Site: right hand; bp Disposition: 08/05/19 11:48 Hospitalization ordered by Hemant Machado for Inpatient Admission. Preliminary diagnosis are Gastrointestinal hemorrhage, unspecified, Anemia, unspecified, Essential (primary) hypertension, Unspecified kidney failure - insufficency, Tobacco abuse counseling, Tobacco use. - Bed requested for Telemetry/MedSurg (Inpatient). - Status is Inpatient Admission. bp - Condition is Fair. - Problem is new. - Symptoms have improved. Signatures: Dispatcher [employer] EDElle Avila Diana RN RN Salinas Barahona MD MD cha Peltier, Brian, RN RN bp Corrections: (The following items were deleted from the chart) 12:01 11:48 Hospitalization Ordered by Hemant Machado MD for Inpatient Admission. Preliminary garry diagnosis is Gastrointestinal hemorrhage, unspecified; Anemia, unspecified. Bed requested for Telemetry/MedSurg (Inpatient). Status is Inpatient Admission. Condition is Fair. Problem is new. Symptoms have improved. garry 13:31 12:01 08/05/2019 11:48 Hospitalization Ordered by Hemant Machado MD for Inpatient bd Admission. Preliminary diagnosis is Gastrointestinal hemorrhage, unspecified; Anemia, unspecified; Essential (primary) hypertension; Unspecified kidney failure - insufficency; Tobacco abuse counseling; Tobacco use. Bed requested for Telemetry/MedSurg (Inpatient). Status is Inpatient Admission. Condition is Fair. Problem is new. Symptoms have improved. [facility] 13:32 13:31 08/05/2019 11:48 Hospitalization Ordered by Hemant Machado MD for Inpatient dw Admission. Preliminary diagnosis is Gastrointestinal hemorrhage, unspecified; Anemia, unspecified; Essential (primary) hypertension; Unspecified kidney failure - insufficency; Tobacco abuse counseling; Tobacco use. Bed requested for Telemetry/MedSurg (Inpatient). Status is Inpatient Admission. Condition is Fair. Problem is new. Symptoms have improved. bd 15:02 13:32 08/05/2019 11:48 Hospitalization Ordered by Hemant Machado MD for Inpatient bp Admission. Preliminary diagnosis is Gastrointestinal hemorrhage, unspecified; Anemia, unspecified; Essential (primary) hypertension; Unspecified kidney failure - insufficency; Tobacco abuse counseling; Tobacco use. Bed requested for Telemetry/MedSurg (Inpatient). Status is Inpatient Admission. Condition is Fair. Problem is new. Symptoms have improved. dw
[2019-08-05 11:55] LABS: ALT/SGPT 11 U/L (12-78); AST/SGOT 8 U/L (15-37); Albumin 2.4 g/dL (3.4-5.0); Alkaline Phosphatase 54 U/L (45-117); BUN Blood Urea Nitrogen 59 mg/dL (7-18); Bicarbonate 21 mmol/L (21-32); Bilirubin Direct < 0.1 mg/dL (0-0.2); Bilirubin Total 0.2 mg/dL (0.2-1.0); Glucose Level 99 mg/dL (74-106); Lipase 437 U/L (73-393); Magnesium 2.2 mg/dL (1.8-2.4); NT PRO-BNP 2798 pg/mL (<125); Potassium 4.6 mmol/L (3.5-5.1); Protein, Total 5.7 g/dL (6.4-8.2); Sodium Level 140 mmol/L (136-145); Troponin (Emerg Dept Use Only) < 0.02 ng/mL (0.0-0.045)
--- NOTE | 2019-08-05 12:03 | RAD REPORT ---
EXAM DESCRIPTION: Dariana Single View08/05/2019 11:55 am CLINICAL HISTORY: cough COMPARISON: 07/22 FINDINGS: The lungs appear clear of acute infiltrate. The heart is normal size IMPRESSION: No acute abnormalities displayed
[2019-08-05 12:52] LABS: Urine Blood 2+ (NEG); Urine Glucose NEGATIVE (NEG); Urine Protein 3+ (NEG); Urine pH 6.5 (5.0-7.0)
[2019-08-05] MEDS ORDERED: NA CHLORIDE 0.9% 250 ML ONE ×2 (12:58→21:09)
[2019-08-05] MEDS ORDERED: NA CHLORIDE 0.9% 250 ML IV SCH (14:22)
[2019-08-05] MEDS ORDERED: ONDANSETRON 4 MG/2 ML VIAL IV PRN (14:22)
--- NOTE | 2019-08-05 14:27 | P.HP ---
Certification for Inpatient Patient admitted to: Inpatient With expected LOS: >2 Midnights Practitioner: I am a practitioner with admitting privileges, knowledge of patient current condition, hospital course, and medical plan of care. Services: Services provided to patient in accordance with Admission requirements found in Title 42 Section 412.3 of the Code of Federal Regulations Patient History Date of Service: 08/05/19 Primary Care Provider: None Reason for admission: GI bleed, vomiting blood History of Present Illness: Patient is a 43-year-old female with past medical history of hypertension recent transfer to [facility] for GI bleed and found to have bleeding likely from ulcers which needed cauterization. Patient also had a colonoscopy done. Records have been requested who was discharged approximately 1 week ago. Patient is living at the [facility] was unable to afford her Protonix medication. Patient had episode of hematemesis and therefore came into the hospital. Patient reports some dizziness but no falls. Patient's symptoms are constant moderate progressively worsening. In the ER her vital signs were stable. Her hemoglobin was 6.9. Patient was referred for admission. When seen in the ER she was awake alert oriented x3 in some mild distress Allergies No Known Allergies Allergy (Unverified 07/23/19 03:06) Home medications list reviewed: Yes - Past Medical/Surgical History Diabetic: No -: Hypertension -: Medication nonadherence -: GI bleed Past Surgical History: Patient denies surgical history -: Hernia -: Knee surgery -: Psychosocial/ Personal History: initially homeless but currently working on disability. Lives at [facility] - Social History Smoking Status: Light Tobacco smoker (1-9 cigarettes/day) Alcohol use: No CD- Drugs: Yes Review of Systems 10-point ROS is otherwise unremarkable Gastrointestinal: As per HPI Physical Examination - Vital Signs Temperature: 97.7 F Blood Pressure: 188/98 Pulse: 87 Respirations: 16 Pulse Ox (%): 98 - Physical Exam General: Alert, Oriented x3, Mild distress, Obese HEENT: Atraumatic, PERRLA, Mucous membr. moist/pink, EOMI, Sclerae nonicteric Neck: Supple, JVD not distended Respiratory: Clear to auscultation bilaterally, Normal air movement Cardiovascular: No edema, Normal pulses, Regular rate/rhythm, Normal S1 S2 Gastrointestinal: Normal bowel sounds, Soft and benign, Non-distended, Tenderness (Epigastric) Musculoskeletal: No tenderness Integumentary: No rashes, No erythema Neurological: Normal speech, Normal strength at 5/5 x4 extr, Normal tone, Cranial nerves 3-12 intact, Normal affect - Studies Laboratory Data (last 24 hrs) 08/05/19 11:25: PT 11.5, INR 0.97 08/05/19 11:25: WBC 6.5 D, Hgb 6.9 L*, Hct 21.2 L D, Plt Count 240 D 08/05/19 11:25: Sodium 140, Potassium 4.6, BUN 59 H D, Creatinine 1.74 H, Glucose 99, Magnesium 2.2, Total Bilirubin 0.2, AST 8 L, ALT 11 L, Alkaline Phosphatase 54, Lipase 437 H Imagings Data: Reason for Exam: COUGH Report Status: Signed EXAM DESCRIPTION: Dariana Single View08/05/2019 11:55 am CLINICAL HISTORY: cough COMPARISON: 07/22 FINDINGS: The lungs appear clear of acute infiltrate. The heart is normal size IMPRESSION: No acute abnormalities displayed Assessment and Plan - Plan 43-year-old female with 1. Acute blood loss anemia secondary to gastrointestinal bleed. Will transfuse PRBCs. 2 units ordered in the ER. Monitor H&H. Secondary to GI bleed. Lasix 40 mg IV after each unit. 2. Gastrointestinal bleed. Secondary to hematemesis. Patient had EGD with cauterization and colonoscopy at [facility] will obtain reports. GI has been consulted. Will keep NPO. Possible EGD in a.m.. 3. Essential hypertension. Blood pressure elevated at 188 systolic will continue to monitor. Use hydralazine sparingly as patient likely has possible volume loss from bleed and to avoid drop in blood pressure. 4. Iron deficiency anemia. Continue supplements 5. Noncompliance. Patient unable to afford her medication. Currently not taking any PPI - Advance Directives Does patient have a Living Will: No Does patient have a Durable POA for Healthcare: No
--- OUTSIDE RECORDS SUMMARY | 2019-08-05 14:34 | XMS REPORT ---
:1975 [facility] Benjamin Menendez [address] [place] [id number] Care Team Providers Name Role Phone MAX SAHU Unavailable Unavailable Problems This patient has no known problems. Allergies, Adverse Reactions, Alerts This patient has no known allergies or adverse reactions. Medications This patient has no known medications. Results Test Description Test Time Test Comments Text Results Atomic Results Result Comments BASIC METABOLIC PANEL 2019-07-28 06:38:00 Test Item Value Reference Range Comments SODIUM (BEAKER) (test 140 meq/L 136-145 nbwl=634) POTASSIUM (BEAKER) (test 4.0 meq/L 3.5-5.1 mwry=086) CHLORIDE (BEAKER) (test 111 meq/L 98-107 vnmj=574) CO2 (BEAKER) (test jppc=439) 23 meq/L 22-29 BLOOD UREA NITROGEN (BEAKER) 29 mg/dL 7-21 (test dvru=427) CREATININE (BEAKER) (test 1.80 mg/dL 0.57-1.25 kzhd=057) GLUCOSE RANDOM (BEAKER) 102 mg/dL 70-105 (test mbll=641) CALCIUM (BEAKER) (test 7.7 mg/dL 8.4-10.2 qnso=130) EGFR (BEAKER) (test 31 mL/min/1.73 sq m ESTIMATED GFR IS NOT vqto=1833) ACCURATE CREATININE CLEARANCE IN PREDICTING GLOMERULAR FILTRATION RATE. ESTIMATED GFR IS NOT APPLICABLE FOR DIALYSIS PATIENTS. Electrical Intern ID - PIAYA LCBC W/PLT COUNT & AUTO [id number] 05:52:00 Test Item Value Reference Range Comments WHITE BLOOD CELL COUNT (BEAKER) (test ruep=694) 9.0 K/ L 3.5-10.5 RED BLOOD CELL COUNT (BEAKER) (test qkaj=053) 3.09 M/ L 3.93-5.22 HEMOGLOBIN (BEAKER) (test xblh=704) 8.9 GM/DL 11.2-15.7 HEMATOCRIT (BEAKER) (test twfn=790) 27.1 % 34.1-44.9 MEAN CORPUSCULAR VOLUME (BEAKER) (test lnad=491) 87.7 fL 79.4-94.8 MEAN CORPUSCULAR HEMOGLOBIN (BEAKER) (test 28.8 pg 25.6-32.2 zflz=388) MEAN CORPUSCULAR HEMOGLOBIN CONC (BEAKER) (test 32.8 GM/DL 32.2-35.5 euge=505) RED CELL DISTRIBUTION WIDTH (BEAKER) (test 18.5 % 11.7-14.4 erea=063) PLATELET COUNT (BEAKER) (test jsqa=420) 233 K/CU MM 150-450 MEAN PLATELET VOLUME (BEAKER) (test cshj=183) 10.7 fL 9.4-12.3 NUCLEATED RED BLOOD CELLS (BEAKER) (test 0 /100 WBC 0-0 moce=571) NEUTROPHILS RELATIVE PERCENT (BEAKER) (test 74 % yzsr=924) LYMPHOCYTES RELATIVE PERCENT (BEAKER) (test 18 % iaad=693) MONOCYTES RELATIVE PERCENT (BEAKER) (test 5 % ufsv=057) EOSINOPHILS RELATIVE PERCENT (BEAKER) (test 2 % muhz=196) BASOPHILS RELATIVE PERCENT (BEAKER) (test 0 % iwme=833) NEUTROPHILS ABSOLUTE COUNT (BEAKER) (test 6.67 K/ L 1.56-6.13 hpde=934) LYMPHOCYTES ABSOLUTE COUNT (BEAKER) (test 1.59 K/ L 1.18-3.74 rhvm=812) MONOCYTES ABSOLUTE COUNT (BEAKER) (test 0.47 K/ L 0.24-0.36 ddkr=685) EOSINOPHILS ABSOLUTE COUNT (BEAKER) (test 0.18 K/ L 0.04-0.36 aria=358) BASOPHILS ABSOLUTE COUNT (BEAKER) (test 0.03 K/ L 0.01-0.08 riip=720) IMMATURE GRANULOCYTES-RELATIVE PERCENT (BEAKER) 1 % 0-1 (test cvwd=1861) BASIC METABOLIC [id number] 04:49:00 Test Item Value Reference Range Comments SODIUM (BEAKER) (test 138 meq/L 136-145 ixup=822) POTASSIUM (BEAKER) (test 4.0 meq/L 3.5-5.1 lmfz=067) CHLORIDE (BEAKER) (test 111 meq/L 98-107 flbw=301) CO2 (BEAKER) (test 21 meq/L 22-29 lszo=360) BLOOD UREA NITROGEN 40 mg/dL 7-21 (BEAKER) (test rdeo=663) CREATININE (BEAKER) (test 1.84 mg/dL 0.57-1.25 odkv=014) GLUCOSE RANDOM (BEAKER) 85 mg/dL 70-105 (test rkwb=617) CALCIUM (BEAKER) (test 7.6 mg/dL 8.4-10.2 ovxi=857) EGFR (BEAKER) (test 30 mL/min/1.73 sq m ESTIMATED GFR IS NOT aqlz=2362) ACCURATE CREATININE CLEARANCE IN PREDICTING GLOMERULAR FILTRATION RATE. ESTIMATED GFR IS NOT APPLICABLE FOR DIALYSIS PATIENTS. Electrical Intern ID - PIAYA LCBC W/PLT COUNT & AUTO [id number] 04:28:00 Test Item Value Reference Range Comments WHITE BLOOD CELL COUNT (BEAKER) (test qvdb=522) 8.0 K/ L 3.5-10.5 RED BLOOD CELL COUNT (BEAKER) (test lgfz=872) 2.99 M/ L 3.93-5.22 HEMOGLOBIN (BEAKER) (test qklp=215) 8.4 GM/DL 11.2-15.7 HEMATOCRIT (BEAKER) (test ejbn=931) 25.1 % 34.1-44.9 MEAN CORPUSCULAR VOLUME (BEAKER) (test zitb=535) 83.9 fL 79.4-94.8 MEAN CORPUSCULAR HEMOGLOBIN (BEAKER) (test 28.1 pg 25.6-32.2 dbnx=526) MEAN CORPUSCULAR HEMOGLOBIN CONC (BEAKER) (test 33.5 GM/DL 32.2-35.5 jhdj=799) RED CELL DISTRIBUTION WIDTH (BEAKER) (test 17.7 % 11.7-14.4 vqbd=999) PLATELET COUNT (BEAKER) (test bbwn=963) 204 K/CU MM 150-450 MEAN PLATELET VOLUME (BEAKER) (test zrsz=736) 10.4 fL 9.4-12.3 NUCLEATED RED BLOOD CELLS (BEAKER) (test 0 /100 WBC 0-0 wyrm=912) NEUTROPHILS RELATIVE PERCENT (BEAKER) (test 65 % gecs=532) LYMPHOCYTES RELATIVE PERCENT (BEAKER) (test 27 % bfvo=641) MONOCYTES RELATIVE PERCENT (BEAKER) (test 5 % hywr=128) EOSINOPHILS RELATIVE PERCENT (BEAKER) (test 2 % zova=062) BASOPHILS RELATIVE PERCENT (BEAKER) (test 1 % ccrm=933) NEUTROPHILS ABSOLUTE COUNT (BEAKER) (test 5.14 K/ L 1.56-6.13 fbah=764) LYMPHOCYTES ABSOLUTE COUNT (BEAKER) (test 2.13 K/ L 1.18-3.74 tdlj=401) MONOCYTES ABSOLUTE COUNT (BEAKER) (test 0.39 K/ L 0.24-0.36 mxec=893) EOSINOPHILS ABSOLUTE COUNT (BEAKER) (test 0.18 K/ L 0.04-0.36 otqg=349) BASOPHILS ABSOLUTE COUNT (BEAKER) (test 0.04 K/ L 0.01-0.08 knuj=831) IMMATURE GRANULOCYTES-RELATIVE PERCENT (BEAKER) 1 % 0-1 (test cavf=3737) HEMOGLOBIN AND [id number] 15:10:00 Test Item Value Reference Range Comments HEMOGLOBIN (BEAKER) (test sodq=167) 8.2 GM/DL 11.2-15.7 HEMATOCRIT (BEAKER) (test vkcc=376) 24.3 % 34.1-44.9 Electrical Intern ID - [id number] SMEAR, [id number] 14:02:00 Test Item Value Reference Range Comments EOSINOPHIL SMEAR, URINE (BEAKER) (test No EOS seen No EOS seen cvvi=5255) CREATININE, RANDOM [id number] 13:28:00 Test Item Value Reference Range Comments CREATININE URINE (BEAKER) (test mfjs=303) 55.5 mg/dL Reference Range: No NormalsOperator ID - ABRAM WSODIUM, RANDOM [id number] 13:28:00 Test Item Value Reference Range Comments SODIUM URINE (BEAKER) (test btgf=400) 30 meq/L Reference Range: No NormalsOperator ID - ABRAM LOPEZ/S, RENAL WITH [id number] 13:11:00Reason for exam:->andrea vs ckd, evaluate for renal artery stenosis as wellShould this be performed at the bedside?->NoFINAL REPORT Renal ultrasound with Doppler History: Acute versus chronic kidney disease Comparison: None Findings: The kidneys appear somewhat echogenic. No definite cortical atrophy is appreciated. No hydronephrosis, renal calculus, or renal mass is visualized. Right kidney measures 11.4 x 4.1 x 5.3cm. Left kidney measures 10.7 x 4.7 x 4.5cm. The bilateral renal artery origins are inadequately evaluated on this examination. The resistive indices within the right kidney range from 0.6-0.7. The resistive indices within the left kidney range from 0.7-0.8. No parvus tardus waveforms are identified within the kidneys. Impression: 1. No evidence of hydronephrosis.2. Somewhat echogenic appearance of the kidneys, which could reflect medical renal disease.3. The bilateral renalartery origins are inadequately evaluated on this examination. Signed: Dallas Aquino MDReport Verified Date/Time: 07/26/2019 13:11:49 Reading Location: [address] Consult Reading Room OSMOLALITY, [id number] 12:37:00 Test Item Value Reference Range Comments OSMOLALITY URINE (BEAKER) (test qzlp=036) 417 mOsm/kg 40-1,400 URINALYSIS [id number] 12:37:00 Test Item Value Reference Range Comments RBC UA (BEAKER) (test hoyk=895) 2 /HPF WBC UA (BEAKER) (test icky=366) 1 /HPF BACTERIA (BEAKER) (test lrcr=539) Many SQUAMOUS EPITHELIAL (BEAKER) (test wwky=865) 2 /HPF Electrical Intern ID - techURINALYSIS WITH MICROSCOPIC IF [id number] 12:36:00 Test Item Value Reference Range Comments COLOR (BEAKER) (test zvlx=220) Light Yellow CLARITY (BEAKER) (test nuiq=914) Clear SPECIFIC GRAVITY UA (BEAKER) (test wgeh=584) 1.013 1.001-1.035 PH UA (BEAKER) (test yutc=390) 6.0 5.0-8.0 PROTEIN UA (BEAKER) (test jxnx=901) 100 mg/dL Negative GLUCOSE UA (BEAKER) (test udru=126) Negative Negative KETONES UA (BEAKER) (test ansk=436) Negative Negative BILIRUBIN UA (BEAKER) (test mcfs=439) Negative Negative BLOOD UA (BEAKER) (test hett=411) Small Negative NITRITE UA (BEAKER) (test lpaf=552) Negative Negative LEUKOCYTE ESTERASE UA (BEAKER) (test hhpa=320) Negative Negative UROBILINOGEN UA (BEAKER) (test zlwa=934) 0.2 mg/dL 0.2-1.0 SOURCE(BEAKER) (test wuln=4054) Electrical Intern ID - [auto]BASIC METABOLIC [id number] 05:38:00 Test Item Value Reference Range Comments SODIUM (BEAKER) (test 135 meq/L 136-145 yjrk=637) POTASSIUM (BEAKER) (test 3.8 meq/L 3.5-5.1 glso=001) CHLORIDE (BEAKER) (test 111 meq/L 98-107 bsed=421) CO2 (BEAKER) (test 17 meq/L 22-29 qaxm=736) BLOOD UREA NITROGEN 60 mg/dL 7-21 (BEAKER) (test nceh=601) CREATININE (BEAKER) (test 2.13 mg/dL 0.57-1.25 ebrt=652) GLUCOSE RANDOM (BEAKER) 89 mg/dL 70-105 (test jxdl=603) CALCIUM (BEAKER) (test 7.3 mg/dL 8.4-10.2 uoro=987) EGFR (BEAKER) (test 25 mL/min/1.73 sq m ESTIMATED GFR IS NOT xhpr=0296) ACCURATE CREATININE CLEARANCE IN PREDICTING GLOMERULAR FILTRATION RATE. ESTIMATED GFR IS NOT APPLICABLE FOR DIALYSIS PATIENTS. Electrical Intern ID - JUANY MCBC W/PLT COUNT & AUTO [id number] 05:19:00 Test Item Value Reference Range Comments WHITE BLOOD CELL COUNT (BEAKER) (test ghas=285) 7.5 K/ L 3.5-10.5 RED BLOOD CELL COUNT (BEAKER) (test hnph=048) 2.60 M/ L 3.93-5.22 HEMOGLOBIN (BEAKER) (test ldqe=438) 7.4 GM/DL 11.2-15.7 HEMATOCRIT (BEAKER) (test qunf=490) 21.6 % 34.1-44.9 MEAN CORPUSCULAR VOLUME (BEAKER) (test fyqt=041) 83.1 fL 79.4-94.8 MEAN CORPUSCULAR HEMOGLOBIN (BEAKER) (test 28.5 pg 25.6-32.2 nwhz=207) MEAN CORPUSCULAR HEMOGLOBIN CONC (BEAKER) (test 34.3 GM/DL 32.2-35.5 vsny=722) RED CELL DISTRIBUTION WIDTH (BEAKER) (test 17.2 % 11.7-14.4 qxer=862) PLATELET COUNT (BEAKER) (test tksn=178) 158 K/CU MM 150-450 MEAN PLATELET VOLUME (BEAKER) (test hgos=928) 10.5 fL 9.4-12.3 NUCLEATED RED BLOOD CELLS (BEAKER) (test 0 /100 WBC 0-0 urqs=450) NEUTROPHILS RELATIVE PERCENT (BEAKER) (test 64 % uuwj=793) LYMPHOCYTES RELATIVE PERCENT (BEAKER) (test 29 % wynb=143) MONOCYTES RELATIVE PERCENT (BEAKER) (test 5 % qbia=105) EOSINOPHILS RELATIVE PERCENT (BEAKER) (test 1 % tnkq=139) BASOPHILS RELATIVE PERCENT (BEAKER) (test 0 % ngdh=913) NEUTROPHILS ABSOLUTE COUNT (BEAKER) (test 4.79 K/ L 1.56-6.13 irhs=011) LYMPHOCYTES ABSOLUTE COUNT (BEAKER) (test 2.21 K/ L 1.18-3.74 asik=561) MONOCYTES ABSOLUTE COUNT (BEAKER) (test 0.38 K/ L 0.24-0.36 ngao=008) EOSINOPHILS ABSOLUTE COUNT (BEAKER) (test 0.07 K/ L 0.04-0.36 zhor=264) BASOPHILS ABSOLUTE COUNT (BEAKER) (test 0.02 K/ L 0.01-0.08 lgqk=782) IMMATURE GRANULOCYTES-RELATIVE PERCENT (BEAKER) 1 % 0-1 (test subw=7607) HEMOGLOBIN AND [id number] 21:42:00 Test Item Value Reference Range Comments HEMOGLOBIN (BEAKER) (test jvoc=860) 6.6 GM/DL 11.2-15.7 HEMATOCRIT (BEAKER) (test zlhc=164) 18.8 % 34.1-44.9 Electrical Intern ID - 6000HEMOGLOBIN AND [id number] 20:23:00 Test Item Value Reference Range Comments HEMOGLOBIN (BEAKER) (test rxru=919) 6.9 GM/DL 11.2-15.7 HEMATOCRIT (BEAKER) (test qcsv=384) 19.9 % 34.1-44.9 Electrical Intern ID - 6000CBC W/PLT COUNT & AUTO [id number] 12:49:00 Test Item Value Reference Range Comments WHITE BLOOD CELL COUNT (BEAKER) (test rcyo=471) 13.7 K/ L 3.5-10.5 RED BLOOD CELL COUNT (BEAKER) (test mppj=690) 2.39 M/ L 3.93-5.22 HEMOGLOBIN (BEAKER) (test shiu=862) 6.7 GM/DL 11.2-15.7 HEMATOCRIT (BEAKER) (test hrze=214) 20.5 % 34.1-44.9 MEAN CORPUSCULAR VOLUME (BEAKER) (test ruip=067) 85.8 fL 79.4-94.8 MEAN CORPUSCULAR HEMOGLOBIN (BEAKER) (test 28.0 pg 25.6-32.2 zdmt=408) MEAN CORPUSCULAR HEMOGLOBIN CONC (BEAKER) (test 32.7 GM/DL 32.2-35.5 nzui=931) RED CELL DISTRIBUTION WIDTH (BEAKER) (test 16.1 % 11.7-14.4 swxa=947) PLATELET COUNT (BEAKER) (test iuoc=889) 189 K/CU MM 150-450 MEAN PLATELET VOLUME (BEAKER) (test pbqk=052) 10.8 fL 9.4-12.3 NUCLEATED RED BLOOD CELLS (BEAKER) (test 0 /100 WBC 0-0 dsmb=348) NEUTROPHILS RELATIVE PERCENT (BEAKER) (test 82 % meop=111) LYMPHOCYTES RELATIVE PERCENT (BEAKER) (test 14 % ehlc=993) MONOCYTES RELATIVE PERCENT (BEAKER) (test 3 % mkbm=034) EOSINOPHILS RELATIVE PERCENT (BEAKER) (test 0 % xdnx=950) BASOPHILS RELATIVE PERCENT (BEAKER) (test 0 % qbth=370) NEUTROPHILS ABSOLUTE COUNT (BEAKER) (test 11.16 K/ L 1.56-6.13 dnak=032) LYMPHOCYTES ABSOLUTE COUNT (BEAKER) (test 1.90 K/ L 1.18-3.74 ierl=442) MONOCYTES ABSOLUTE COUNT (BEAKER) (test 0.43 K/ L 0.24-0.36 fhib=785) EOSINOPHILS ABSOLUTE COUNT (BEAKER) (test 0.01 K/ L 0.04-0.36 bfdi=512) BASOPHILS ABSOLUTE COUNT (BEAKER) (test 0.02 K/ L 0.01-0.08 oiia=489) IMMATURE GRANULOCYTES-RELATIVE PERCENT (BEAKER) 1 % 0-1 (test zvta=9774) BLOOD GAS, [id number] 12:42:00 Test Item Value Reference Range Comments PH VENOUS (BEAKER) (test gnlc=217) 7.32 7.32-7.42 PCO2 VENOUS (BEAKER) (test qjuj=609) 34 mmHg 41-51 PO2 VENOUS (BEAKER) (test bmsv=019) 45 mmHg 25-40 O2 SATURATION VENOUS (BEAKER) (test rbkt=209) 78.0 % 40.0-70.0 HCO3 VENOUS (BEAKER) (test zwto=435) 17 mmol/L 21-29 BASE EXCESS VENOUS (BEAKER) (test vqdl=342) -8.6 mmol/L -2.0-3.0 PATIENT TEMPERATURE (BEAKER) (test kmyt=5446) 37.0 C FIO2 (BEAKER) (test mnsr=8898) 21.0 % CBC W/PLT COUNT & AUTO [id number] 03:58:00 Test Item Value Reference Range Comments WHITE BLOOD CELL COUNT (BEAKER) (test rwut=981) 11.8 K/ L 3.5-10.5 RED BLOOD CELL COUNT (BEAKER) (test dmhw=492) 2.55 M/ L 3.93-5.22 HEMOGLOBIN (BEAKER) (test reqp=476) 7.3 GM/DL 11.2-15.7 HEMATOCRIT (BEAKER) (test pbsz=808) 21.5 % 34.1-44.9 MEAN CORPUSCULAR VOLUME (BEAKER) (test bqqr=538) 84.3 fL 79.4-94.8 MEAN CORPUSCULAR HEMOGLOBIN (BEAKER) (test 28.6 pg 25.6-32.2 lcix=326) MEAN CORPUSCULAR HEMOGLOBIN CONC (BEAKER) (test 34.0 GM/DL 32.2-35.5 rtra=827) RED CELL DISTRIBUTION WIDTH (BEAKER) (test 15.6 % 11.7-14.4 mhbi=559) PLATELET COUNT (BEAKER) (test uwki=107) 164 K/CU MM 150-450 MEAN PLATELET VOLUME (BEAKER) (test qlhj=203) 10.5 fL 9.4-12.3 NUCLEATED RED BLOOD CELLS (BEAKER) (test 0 /100 WBC 0-0 hfwy=527) NEUTROPHILS RELATIVE PERCENT (BEAKER) (test 90 % djvm=185) LYMPHOCYTES RELATIVE PERCENT (BEAKER) (test 8 % awae=087) MONOCYTES RELATIVE PERCENT (BEAKER) (test 2 % shps=652) EOSINOPHILS RELATIVE PERCENT (BEAKER) (test 0 % hfbk=566) BASOPHILS RELATIVE PERCENT (BEAKER) (test 0 % dccr=278) NEUTROPHILS ABSOLUTE COUNT (BEAKER) (test 10.55 K/ L 1.56-6.13 pcmn=476) LYMPHOCYTES ABSOLUTE COUNT (BEAKER) (test 0.88 K/ L 1.18-3.74 mpyr=417) MONOCYTES ABSOLUTE COUNT (BEAKER) (test 0.18 K/ L 0.24-0.36 arem=271) EOSINOPHILS ABSOLUTE COUNT (BEAKER) (test 0.00 K/ L 0.04-0.36 clci=562) BASOPHILS ABSOLUTE COUNT (BEAKER) (test 0.01 K/ L 0.01-0.08 ezge=143) IMMATURE GRANULOCYTES-RELATIVE PERCENT (BEAKER) 1 % 0-1 (test xmob=5102) BASIC METABOLIC [id number] 03:56:00 Test Item Value Reference Range Comments SODIUM (BEAKER) (test 136 meq/L 136-145 pxwc=765) POTASSIUM (BEAKER) (test 4.0 meq/L 3.5-5.1 Specimen slightly lcqd=504) hemolyzed CHLORIDE (BEAKER) (test 116 meq/L 98-107 zpcn=845) CO2 (BEAKER) (test 14 meq/L 22-29 galn=444) BLOOD UREA NITROGEN 70 mg/dL 7-21 (BEAKER) (test otks=457) CREATININE (BEAKER) (test 1.85 mg/dL 0.57-1.25 Specimen slightly avqh=941) hemolyzed GLUCOSE RANDOM (BEAKER) 107 mg/dL 70-105 (test zygz=760) CALCIUM (BEAKER) (test 6.5 mg/dL 8.4-10.2 lvha=620) EGFR (BEAKER) (test 30 mL/min/1.73 sq m ESTIMATED GFR IS NOT ilgk=7211) ACCURATE CREATININE CLEARANCE IN PREDICTING GLOMERULAR FILTRATION RATE. ESTIMATED GFR IS NOT APPLICABLE FOR DIALYSIS PATIENTS. Electrical Intern ID - ROSALBA WBASIC METABOLIC [id number] 23:35:00 Test Item Value Reference Range Comments SODIUM (BEAKER) (test 134 meq/L 136-145 pper=794) POTASSIUM (BEAKER) (test 4.4 meq/L 3.5-5.1 Specimen slightly phrl=637) hemolyzed CHLORIDE (BEAKER) (test 113 meq/L 98-107 bkll=796) CO2 (BEAKER) (test 15 meq/L 22-29 hxqe=016) BLOOD UREA NITROGEN 86 mg/dL 7-21 (BEAKER) (test errj=020) CREATININE (BEAKER) (test 2.05 mg/dL 0.57-1.25 Specimen slightly aebx=861) hemolyzed GLUCOSE RANDOM (BEAKER) 135 mg/dL 70-105 (test mgce=208) CALCIUM (BEAKER) (test 7.2 mg/dL 8.4-10.2 mzcn=658) EGFR (BEAKER) (test 26 mL/min/1.73 sq m ESTIMATED GFR IS NOT uozg=9683) ACCURATE CREATININE CLEARANCE IN PREDICTING GLOMERULAR FILTRATION RATE. ESTIMATED GFR IS NOT APPLICABLE FOR DIALYSIS PATIENTS. Electrical Intern ID - [id number] 23:34:00 Test Item Value Reference Range Comments MAGNESIUM (BEAKER) (test 2.0 mg/dL 1.6-2.6 Specimen slightly hemolyzed hwdj=588) Electrical Intern ID - [id number] 23:34:00 Test Item Value Reference Range Comments PHOSPHORUS (BEAKER) (test 3.3 mg/dL 2.3-4.7 Specimen slightly hemolyzed imru=567) Electrical Intern ID - DBCBC W/PLT COUNT & AUTO [id number] 23:17:00 Test Item Value Reference Range Comments WHITE BLOOD CELL COUNT (BEAKER) (test qlfe=165) 13.8 K/ L 3.5-10.5 RED BLOOD CELL COUNT (BEAKER) (test iccj=278) 2.67 M/ L 3.93-5.22 HEMOGLOBIN (BEAKER) (test lucg=079) 7.9 GM/DL 11.2-15.7 HEMATOCRIT (BEAKER) (test lsce=157) 22.7 % 34.1-44.9 MEAN CORPUSCULAR VOLUME (BEAKER) (test ujfp=622) 85.0 fL 79.4-94.8 MEAN CORPUSCULAR HEMOGLOBIN (BEAKER) (test 29.6 pg 25.6-32.2 qbju=977) MEAN CORPUSCULAR HEMOGLOBIN CONC (BEAKER) (test 34.8 GM/DL 32.2-35.5 pfkt=648) RED CELL DISTRIBUTION WIDTH (BEAKER) (test 15.2 % 11.7-14.4 vdfm=668) PLATELET COUNT (BEAKER) (test wovp=448) 155 K/CU MM 150-450 MEAN PLATELET VOLUME (BEAKER) (test eidr=581) 10.8 fL 9.4-12.3 NUCLEATED RED BLOOD CELLS (BEAKER) (test 0 /100 WBC 0-0 lbyi=000) NEUTROPHILS RELATIVE PERCENT (BEAKER) (test 94 % vnub=578) LYMPHOCYTES RELATIVE PERCENT (BEAKER) (test 4 % nzzt=044) MONOCYTES RELATIVE PERCENT (BEAKER) (test 1 % ymyw=989) EOSINOPHILS RELATIVE PERCENT (BEAKER) (test 0 % lddh=826) BASOPHILS RELATIVE PERCENT (BEAKER) (test 0 % uoqw=487) NEUTROPHILS ABSOLUTE COUNT (BEAKER) (test 13.00 K/ L 1.56-6.13 erzo=994) LYMPHOCYTES ABSOLUTE COUNT (BEAKER) (test 0.57 K/ L 1.18-3.74 sltm=041) MONOCYTES ABSOLUTE COUNT (BEAKER) (test 0.08 K/ L 0.24-0.36 ndlj=626) EOSINOPHILS ABSOLUTE COUNT (BEAKER) (test 0.01 K/ L 0.04-0.36 ovbl=736) BASOPHILS ABSOLUTE COUNT (BEAKER) (test 0.02 K/ L 0.01-0.08 adfj=571) IMMATURE GRANULOCYTES-RELATIVE PERCENT (BEAKER) 1 % 0-1 (test pyeb=8840) CALCIUM, [id number] 23:12:00 Test Item Value Reference Range Comments CALCIUM IONIZED (BEAKER) (test nxyr=384) 1.07 mmol/L 1.12-1.27 PH, BLOOD (BEAKER) (test ylyw=5406) 7.38 EOSINOPHIL SMEAR, [id number] 20:57:00 Test Item Value Reference Range Comments EOSINOPHIL SMEAR, URINE (BEAKER) (test No EOS seen No EOS seen pqrk=7611) SODIUM, RANDOM [id number] 20:33:00 Test Item Value Reference Range Comments SODIUM URINE (BEAKER) (test bgpg=118) 22 meq/L Reference Range: No NormalsOperator ID - DBCREATININE, RANDOM [id number] 20 :32:00 Test Item Value Reference Range Comments CREATININE URINE (BEAKER) (test fxrc=212) 49.7 mg/dL Reference Range: No NormalsOperator ID - DBOSMOLALITY, [id number] 20:18:00 Test Item Value Reference Range Comments OSMOLALITY URINE (BEAKER) (test lbng=641) 468 mOsm/kg 40-1,400 HEMOGLOBIN AND [id number] 13:35:00 Test Item Value Reference Range Comments HEMOGLOBIN (BEAKER) (test cgel=669) 4.9 GM/DL 11.2-15.7 HEMATOCRIT (BEAKER) (test vsjw=063) 15.0 % 34.1-44.9 Electrical Intern ID - 6000BASIC METABOLIC [id number] 11:14:00 Test Item Value Reference Range Comments SODIUM (BEAKER) (test 137 meq/L 136-145 hmmf=301) POTASSIUM (BEAKER) (test 4.4 meq/L 3.5-5.1 hnrg=044) CHLORIDE (BEAKER) (test 114 meq/L 98-107 uujx=410) CO2 (BEAKER) (test 20 meq/L 22-29 lvlm=878) BLOOD UREA NITROGEN 86 mg/dL 7-21 (BEAKER) (test ntet=907) CREATININE (BEAKER) (test 2.02 mg/dL 0.57-1.25 iepm=072) GLUCOSE RANDOM (BEAKER) 110 mg/dL 70-105 (test tswl=697) CALCIUM (BEAKER) (test 6.9 mg/dL 8.4-10.2 stmn=611) EGFR (BEAKER) (test 27 mL/min/1.73 sq m ESTIMATED GFR IS NOT jgwr=9029) ACCURATE CREATININE CLEARANCE IN PREDICTING GLOMERULAR FILTRATION RATE. ESTIMATED GFR IS NOT APPLICABLE FOR DIALYSIS PATIENTS. Electrical Intern ID - AAHAMIDHEMOGLOBIN AND [id number] 10:55:00 Test Item Value Reference Range Comments HEMOGLOBIN (BEAKER) (test ckle=151) 5.6 GM/DL 11.2-15.7 HEMATOCRIT (BEAKER) (test ifhu=538) 17.5 % 34.1-44.9 Electrical Intern ID - LoriBASIC METABOLIC [id number] 02:47:00 Test Item Value Reference Range Comments SODIUM (BEAKER) (test 138 meq/L 136-145 zedh=496) POTASSIUM (BEAKER) (test 4.0 meq/L 3.5-5.1 zsrv=807) CHLORIDE (BEAKER) (test 113 meq/L 98-107 aopl=038) CO2 (BEAKER) (test 19 meq/L 22-29 dhgs=458) BLOOD UREA NITROGEN 85 mg/dL 7-21 (BEAKER) (test ouit=093) CREATININE (BEAKER) (test 2.10 mg/dL 0.57-1.25 ebiv=436) GLUCOSE RANDOM (BEAKER) 131 mg/dL 70-105 (test tqas=647) CALCIUM (BEAKER) (test 7.2 mg/dL 8.4-10.2 jtco=975) EGFR (BEAKER) (test 26 mL/min/1.73 sq m ESTIMATED GFR IS NOT kpim=3437) ACCURATE CREATININE CLEARANCE IN PREDICTING GLOMERULAR FILTRATION RATE. ESTIMATED GFR IS NOT APPLICABLE FOR DIALYSIS PATIENTS. Electrical Intern ID - ROSALBA WTROPONIN [id number] 02:41:00 Test Item Value Reference Range Comments TROPONIN I (BEAKER) (test pfox=252) 0.03 ng/mL 0.00-0.03 Troponin I (TnI) levels must be interpreted in the context of the presenting symptoms and the clinical findings. Elevated TnI levels indicate myocardial damage, but are not specific for ischemic heart disease. Elevated TnI levels are seen in patients with other cardiac conditions (including myocarditis and congestive heart failure), and slight TnI elevations occur in patients with other conditions, including sepsis, renal failure, acidosis, acute neurological disease, and persistent tachyarrhythmia.Electrical Intern ID - ROSALBA WHEPATIC FUNCTION [id number] 02:34:00 Test Item Value Reference Range Comments TOTAL PROTEIN (BEAKER) (test ypvc=278) 4.3 gm/dL 6.0-8.3 ALBUMIN (BEAKER) (test mbvq=5167) 2.3 g/dL 3.5-5.0 BILIRUBIN TOTAL (BEAKER) (test cppf=061) 0.2 mg/dL 0.2-1.2 BILIRUBIN DIRECT (BEAKER) (test mllh=341) 0.1 mg/dL 0.1-0.5 ALKALINE PHOSPHATASE (BEAKER) (test gcaw=531) 32 U/L 40-150 AST (SGOT) (BEAKER) (test mxki=872) 8 U/L 5-34 ALT (SGPT) (BEAKER) (test jonf=800) 6 U/L 6-55 Electrical Intern ID - ROSALBA WPROTHROMBIN [id number] 02:32:00 Test Item Value Reference Range Comments PROTIME (BEAKER) (test irnj=787) 15.0 seconds 11.9-14.2 INR (BEAKER) (test ttrl=858) 1.2 <=5.9 Effective 10/02/2018: PT Reference Range ChangeNew: 11.9-14.2 Previous: 11.7- 14.7RECOMMENDED COUMADIN/WARFARIN INR THERAPY RANGESSTANDARD DOSE: 2.0-3.0 Includes: PROPHYLAXIS for venous thrombosis, systemic embolization; TREATMENT for venous thrombosis and/or pulmonary embolus.HIGH RISK: Target INR is2.5-3.5 for patients wiht mechanical heart valves.CBC W/PLT COUNT & AUTO [id number] 02:32:00 Test Item Value Reference Range Comments WHITE BLOOD CELL COUNT (BEAKER) (test cwdo=527) 9.5 K/ L 3.5-10.5 RED BLOOD CELL COUNT (BEAKER) (test frcv=465) 2.01 M/ L 3.93-5.22 HEMOGLOBIN (BEAKER) (test iwij=394) 5.8 GM/DL 11.2-15.7 HEMATOCRIT (BEAKER) (test bhxp=528) 17.3 % 34.1-44.9 MEAN CORPUSCULAR VOLUME (BEAKER) (test zqdl=902) 86.1 fL 79.4-94.8 MEAN CORPUSCULAR HEMOGLOBIN (BEAKER) (test 28.9 pg 25.6-32.2 pnoc=349) MEAN CORPUSCULAR HEMOGLOBIN CONC (BEAKER) (test 33.5 GM/DL 32.2-35.5 bjnt=145) RED CELL DISTRIBUTION WIDTH (BEAKER) (test 16.1 % 11.7-14.4 bjrm=230) PLATELET COUNT (BEAKER) (test svte=563) 152 K/CU MM 150-450 MEAN PLATELET VOLUME (BEAKER) (test kaqs=509) 10.9 fL 9.4-12.3 NUCLEATED RED BLOOD CELLS (BEAKER) (test 0 /100 WBC 0-0 rkmg=149) NEUTROPHILS RELATIVE PERCENT (BEAKER) (test 89 % ssvf=883) LYMPHOCYTES RELATIVE PERCENT (BEAKER) (test 8 % jwjb=905) MONOCYTES RELATIVE PERCENT (BEAKER) (test 2 % fjns=809) EOSINOPHILS RELATIVE PERCENT (BEAKER) (test 0 % ixzm=580) BASOPHILS RELATIVE PERCENT (BEAKER) (test 0 % znxz=581) NEUTROPHILS ABSOLUTE COUNT (BEAKER) (test 8.40 K/ L 1.56-6.13 kelv=566) LYMPHOCYTES ABSOLUTE COUNT (BEAKER) (test 0.79 K/ L 1.18-3.74 ompz=209) MONOCYTES ABSOLUTE COUNT (BEAKER) (test 0.20 K/ L 0.24-0.36 hkut=313) EOSINOPHILS ABSOLUTE COUNT (BEAKER) (test 0.01 K/ L 0.04-0.36 gbxe=519) BASOPHILS ABSOLUTE COUNT (BEAKER) (test 0.02 K/ L 0.01-0.08 tqme=496) IMMATURE GRANULOCYTES-RELATIVE PERCENT (BEAKER) 1 % 0-1 (test skrb=0975)
[2019-08-05] MEDS ORDERED: FUROSEMIDE 40 MG/4 ML VIAL IV SCH (15:00)
[2019-08-05] MEDS ORDERED: HYDRALAZINE HCL 20 MG/ML VIAL IV ONE (15:30)
[2019-08-05 15:45] VITALS: BMI 30.4
[2019-08-05] MEDS ORDERED: HYDRALAZINE HCL 20 MG/ML VIAL IV PRN (19:53)
[2019-08-05] MEDS: HYDRALAZINE HCL 20 MG/ML VIAL IV PRN (21:20)
[2019-08-05] MEDS: MORPHINE 2 MG/ML SYR IV PRN (22:12)
[2019-08-05] MEDS: D5 0.45 NS 1,000 ML IV SCH (22:22)
--- NOTE | 2019-08-05 22:26 | P.PN ---
Date of Service: 08/05/19 seen , c/o of nausea , abdominal cramps , requesting ice chips . on NPO for sever anemia and presumed GIB -receiving second unit of PRBC - abdo examined , and benign , no elicited tenderness, no guarding - will hold off CT abdomen for now -c/w PPI gtt - add Ativan prn - c/w started morphine prn
[2019-08-05] MEDS: PANTOPRAZOLE INJ 80 MG in NA CHLORIDE 0.9% 250 ML IV SCH (22:42)
[2019-08-05] MEDS: LORazepam 2 MG/ML VIAL IV PRN (22:52)
[2019-08-06] MEDS: D5 0.45 NS 1,000 ML IV SCH ×5 (02:01→23:47)
[2019-08-06] MEDS ORDERED: FUROSEMIDE 40 MG/4 ML VIAL IV ONE (02:17)
[2019-08-06] MEDS: MORPHINE 2 MG/ML SYR IV PRN ×3 (03:47→20:02)
[2019-08-06 04:34] LABS: Absolute Lymphocytes (CBC) 0.8 K/uL (0.7-4.9); Basophils % 0.7 % (0-1.3); Hematocrit 27.8 % (36.0-45.0); Lymphocytes % 12.1 % (15.3-44.8); MPV 8.5 fL (7.6-11.3); RBC Red Blood Cell Count 3.33 M/uL (3.86-4.86)
[2019-08-06 04:45] LABS: Potassium 3.4 mmol/L (3.5-5.1)
[2019-08-06] MEDS: LORazepam 2 MG/ML VIAL IV PRN ×3 (04:49→23:45)
[2019-08-06] MEDS: PANTOPRAZOLE INJ 80 MG in NA CHLORIDE 0.9% 250 ML IV SCH ×3 (07:45→17:35)
--- NOTE | 2019-08-06 09:50 | P.PN ---
Subjective Date of Service: 08/06/19 Primary Care Provider: None Chief Complaint: GI bleed, vomiting blood Subjective: Improving Patient seen and examined chart reviewed and case discussed with RN and Dr. Varner Patient denies any further hematemesis. However still having abdominal discomfort. Patient had severe anxiety last night and had to be given p.r.n. Ativan Review of Systems 10-point ROS is otherwise unremarkable Gastrointestinal: As per HPI Physical Examination - Vital Signs Temperature: 98.3 F Blood Pressure: 182/86 Pulse: 88 Respirations: 17 Pulse Ox (%): 97 - Physical Exam General: Alert, Oriented x3, Mild distress, Other (Appears older than stated age ) HEENT: Atraumatic, PERRLA, EOMI Neck: Supple, JVD not distended Respiratory: Clear to auscultation bilaterally, Normal air movement Cardiovascular: No edema, Normal pulses, Regular rate/rhythm, Normal S1 S2 Gastrointestinal: Normal bowel sounds, Soft and benign, Non-distended, Tenderness (Epigastric) Musculoskeletal: No tenderness Integumentary: No rashes, No erythema Neurological: Normal speech, Normal strength at 5/5 x4 extr, Normal tone, Normal affect - Studies Laboratory Data (last 24 hrs) 08/05/19 11:25: PT 11.5, INR 0.97 08/05/19 11:25: WBC 6.5 D, Hgb 6.9 L*, Hct 21.2 L D, Plt Count 240 D 08/05/19 11:25: Sodium 140, Potassium 4.6, BUN 59 H D, Creatinine 1.74 H, Glucose 99, Magnesium 2.2, Total Bilirubin 0.2, AST 8 L, ALT 11 L, Alkaline Phosphatase 54, Lipase 437 H Medications List Reviewed: Yes Assessment And Plan - Plan 43-year-old female with 1. Acute blood loss anemia secondary to gastrointestinal bleed. Patient transfuses PRBCs. 2 units. Monitor H&H. Secondary to GI bleed. Hemoglobin improved to 9.4 2. Gastrointestinal bleed. Secondary to hematemesis. Patient had EGD with cauterization and colonoscopy at [facility] recently will obtain reports. GI has been consulted. Will keep NPO. Plan for EGD today 3. Essential hypertension. Not well controlled continue hydralazine p.r.n. resume home medications once able to tolerate diet 4. Iron deficiency anemia. Continue supplements 5. Noncompliance. Patient unable to afford her medication. Currently not taking any PPI 6. Generalized anxiety disorder. Ativan p.r.n. DVT prophylaxis SCDs no chemical anticoagulation due to bleed Anticipate EGD today
[2019-08-06] MEDS: cloNIDine HCL 0.1 MG TAB PO SCH ×2 (13:12→16:35)
[2019-08-06] MEDS ORDERED: Ringers Lactate 1,000 ML IV ONE (13:50)
[2019-08-06] MEDS ORDERED: propofoL 200 MG/20 ML VIAL IV ONE (14:07)
[2019-08-06] MEDS ORDERED: EPINEPHRINE/PF 1 MG/ML AMP ONE (14:09)
--- NOTE | 2019-08-06 15:04 | CON ---
Reason For Consultation: Upper GI bleed. History Of Presenting Illness: The patient is a 43-year-old woman who does not seem to be compliant with care. She was recently presented to the hospital with upper GI bleed and melena, at which time her hemoglobin was around 4, was transferred to [facility]. She states that she underwent EGD and co lonoscopy over there. No significant findings on colonoscopy of the patient, but the patient does st ate that they did some cauterization and some "stitching" in the stomach and esophagus. The patient says that she had not been taking her PPI as she was supposed to. She this time came with episode of blood in the vomitus; however, she denied any melena at this time. On presentation, her hemoglobin was around 6.9. Since in the hospital, she had not had any further episodes of bleeding. Past Medical History: History of hypertension, recent GI bleed. Past Surgical History: Hernia surgery, knee surgery, . Social History: States that she lives at the [facility], is currently homeless. 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 Review of Systems: GI: As in HPI, otherwise negative. Remainder of 10-point review of systems is negative. Physical Examination: Vital Signs: On presentation, temperature 97.7, blood pressure 188/98, pulse 87, respiratory rate 16 . HEENT: Head atraumatic, normocephalic. Pupils are equally reactive. Neck: Supple. Chest: Clear to auscultation bilaterally. Abdomen: Soft, nontender, nondistended. Bowel sounds present. Extremities: No pedal edema. OPERATIONS SYSTEMS SPECIALIST: Alert, oriented x3. CVS: S1, S2 plus. Laboratory Data: Reviewed. She is slated to receive 2 units of blood. Impression: 43-year-old woman with recent upper gastrointestinal bleed that required intervention, n ow presents to the hospital with single emesis of reported hematemesis; however, it does not seem to be as significant as last time. Her hemoglobin is better since last admission, but still quite low. Given the symptoms, it is paramount that we do due diligence and evaluate the upper gastrointestinal tract. Plan: Keep n.p.o. Continue IV PPI. We will schedule the patient for an EGD. The risks and complic ations of the procedure which include, but not limited to bleeding, infection, perforation, and anest hesia complication were discussed. She understands and agrees. US/MODL Voice ID: [id number] Report ID: [id number]
--- NOTE | 2019-08-06 15:30 | EKG ---
Test Date: 2019-08-05 Test Time: 11:30:03 Painter Aircraft: ARIE MEASUREMENT RESULTS: Intervals: Rate: 70 MA: 156 QRSD: 82 QT: 416 QTc: 449 [place]: P: 40 MA: 156 QRS: 31 T: 72 INTERPRETIVE STATEMENTS: Sinus rhythm with marked sinus arrhythmia Otherwise normal ECG No previous ECG available for comparison Electronically Signed On 08-06-19 15:28:22 CDT by Avel Chan
--- NOTE | 2019-08-06 15:50 | OP ---
Surgeon: Gerry Varner MD Procedure Performed: Esophagogastroduodenoscopy. Indication For Procedure: Upper GI bleed in a patient who had intervention done in the last 1 week. Plan For Anesthesia: Monitored anesthesia care. Complexity: High. Technique: After obtaining informed consent from the patient explaining risks and complications whic h include but not limited to bleeding, infection, perforation, and anesthesia complication, the patie nt was placed in left lateral position. Sedation was given. From then on, the scope was advanced th rough the mouth and carefully guided up to the second portion of the duodenum. No evidence of active bleeding was seen, but stigmata of recent bleeding were visualized that did not require any treatmen t. After the completion of examination, scope and equipment were withdrawn and procedure terminated in a safe manner. Findings: 1.Esophagus: No gross lesion seen in the entire esophagus. Particularly, no esophageal ulceration or significant esophagitis was visualized. 2.Stomach: Mild patchy erythema seen in the body. In the antrum, several superficial ulcers were v isualized, which had no stigmata of bleed. There was a large cratered ulcer with a visible clip that was seen; however, it had a very clean base. No visible vessel was seen in around the area. Biopsi es were taken from the ulcer. 3.Duodenum: In the bulb, actually in the postbulbar area, another clip was seen without any source of bleeding around the site or visible vessel. The second part of the duodenum was normal. Complications: None. Tolerance To Anesthesia: Excellent. Postoperative Diagnoses: Gastric ulcer, gastritis. No high-risk stigmata of bleeding. Plan: 1.Await pathology results. 2.Continue PPI. 3.Start full liquid diet, advance as tolerated. 4.Again enforce compliance with medication. We will need to follow up with GI as an outpatient. US/MODL Voice ID: [id number] Report ID: [id number]
[2019-08-06] MEDS: HYDRALAZINE HCL 20 MG/ML VIAL IV PRN (17:16)
[2019-08-07] MEDS: PANTOPRAZOLE INJ 80 MG in NA CHLORIDE 0.9% 250 ML IV SCH (01:09)
[2019-08-07] MEDS: MORPHINE 2 MG/ML SYR IV PRN ×2 (03:56→08:38)
[2019-08-07 05:47] LABS: Absolute Lymphocytes (CBC) 0.8 K/uL (0.7-4.9); Basophils % 0.6 % (0-1.3); Hematocrit 27.4 % (36.0-45.0); Lymphocytes % 17.5 % (15.3-44.8); MPV 8.3 fL (7.6-11.3); RBC Red Blood Cell Count 3.27 M/uL (3.86-4.86)
[2019-08-07 05:49] LABS: Potassium 3.8 mmol/L (3.5-5.1)
[2019-08-07] MEDS: D5 0.45 NS 1,000 ML IV SCH (08:35)
[2019-08-07 08:37] VITALS: O2SAT 99
[2019-08-07] MEDS: cloNIDine HCL 0.1 MG TAB PO SCH (08:38)
[2019-08-07] MEDS ORDERED: FERROUS SULFATE 325 MG TAB PO SCH (09:00)
[2019-08-07] MEDS ORDERED: AMLODIPINE 5 MG TAB PO SCH (09:00)
[2019-08-07] MEDS: LORazepam 2 MG/ML VIAL IV PRN (10:16)
[2019-08-07 12:46] VITALS: BP 128/83; TEMP 99
--- NOTE | 2019-08-07 14:13 | P.DS ---
Admission Date: 08/05/19 Discharge Date: 08/07/19 Primary Care Provider: None Disposition: ROUTINE DISCHARGE Discharge Condition: FAIR Reason for Admission: GI bleed, vomiting blood Consultations: GI doctor [place] Brief History of Present Illness: Patient is a 43-year-old female with past medical history of hypertension recent transfer to [facility] for GI bleed and found to have bleeding likely from ulcers which needed cauterization. Patient also had a colonoscopy done. Records have been requested who was discharged approximately 1 week ago. Patient is living at the [facility] was unable to afford her Protonix medication. Patient had episode of hematemesis and therefore came into the hospital. Patient reports some dizziness but no falls. Patient's symptoms are constant moderate progressively worsening. In the ER her vital signs were stable. Her hemoglobin was 6.9. Patient was referred for admission. When seen in the ER she was awake alert oriented x3 in some mild distress Hospital Course: Patient is a 43-year-old female with past medical history of hypertension, iron- deficiency anemia, who was recently discharged from [facility] for GI bleed. Patient had EGD and colonoscopy and sclerotherapy at that facility. Patient was unable to afford her Protonix and came back in with GI bleed. Patient had hematemesis. Patient was found to be anemic transfuse 2 units of PRBCs. Patient was seen by Dr. Varner with GI. EGD was performed and there is no bleeding source found the EGD showed gastritis and clipped gastric and duodenal ulcers from previous procedure. Patient was then restarted on her diet and tolerated it well. Patient's hemoglobin remained stable she had no further hematemesis. Patient was cleared for discharge and sent home in a stable condition. licensing worker was consulted for medication assistance. Patient states she will be able to afford her medication. She understands the importance of taking this medication to prevent further bleeding. 43-year-old female with 1. Acute blood loss anemia secondary to gastrointestinal bleed. Patient transfuses PRBCs. 2 units. Monitor H&H. Secondary to GI bleed. Hemoglobin improved to 9.4 2. Gastrointestinal bleed. Secondary to hematemesis. Patient had EGD with cauterization and colonoscopy at [facility] recently will obtain reports. GI has been consulted. Will keep NPO. Plan for EGD today 3. Essential hypertension. Not well controlled continue hydralazine p.r.n. resume home medications once able to tolerate diet 4. Iron deficiency anemia. Continue supplements 5. Noncompliance. Patient unable to afford her medication. Currently not taking any PPI 6. Generalized anxiety disorder. Ativan p.r.n. Vital Signs/Physical Exam: Temp Pulse Resp BP Pulse Ox 99.0 F 91 H 16 128/83 98 08/07/19 12:00 08/07/19 12:00 08/07/19 12:00 08/07/19 12:00 08/07/19 12:00 General: Alert, In no apparent distress, Oriented x3 HEENT: Atraumatic, PERRLA, EOMI Neck: Supple, JVD not distended Respiratory: Clear to auscultation bilaterally, Normal air movement Cardiovascular: No edema, Normal pulses, Regular rate/rhythm, Normal S1 S2 Gastrointestinal: Normal bowel sounds, Soft and benign, Non-distended, No tenderness Musculoskeletal: No tenderness Integumentary: No rashes Neurological: Normal speech, Normal strength at 5/5 x4 extr, Normal tone, Normal affect Laboratory Data at Discharge: WBC 4.7 K/uL (4.3-10.9) D 08/07/19 05:15 Hgb 9.1 g/dL (12.0-15.0) L 08/07/19 05:15 Hct 27.4 % (36.0-45.0) L 08/07/19 05:15 Plt Count 201 K/uL (152-406) 08/07/19 05:15 PT 11.5 SECONDS (9.5-12.5) 08/05/19 11:25 INR 0.97 08/05/19 11:25 Sodium 140 mmol/L (136-145) 08/07/19 05:15 Potassium 3.8 mmol/L (3.5-5.1) 08/07/19 05:15 BUN 34 mg/dL (7-18) H 08/07/19 05:15 Creatinine 2.14 mg/dL (0.55-1.3) H 08/07/19 05:15 Glucose 92 mg/dL (74-106) 08/07/19 05:15 Magnesium 2.2 mg/dL (1.8-2.4) 08/05/19 11:25 Total Bilirubin 0.2 mg/dL (0.2-1.0) 08/05/19 11:25 AST 8 U/L (15-37) L 08/05/19 11:25 ALT 11 U/L (12-78) L 08/05/19 11:25 Alkaline Phosphatase 54 U/L (45-117) 08/05/19 11:25 Lipase 437 U/L (73-393) H 08/05/19 11:25 Home Medications: Amlodipine [Norvasc*] 5 mg PO DAILY 08/05/19 Clonidine HCl [Catapres*] 0.2 mg PO TID 08/05/19 Ferrous Sulfate [Ferrous Sulfate*] 1 tab PO DAILY 08/05/19 Lisinopril/Hydrochlorothiazide [Lisinopril-Hctz 20-12.5 mg Tab] 1 tab PO DAILY 08/05/19 Pantoprazole [Protonix Tab*] 40 mg PO BID #60 tab 08/07/19 New Medications: Pantoprazole [Protonix Tab*] 40 mg PO BID #60 tab Patient Discharge Instructions: Follow up with primary care physician in 2-3 days. Follow up with GI Dr. Varner in 2 weeks. Return to ER for worsening condition Diet: [place] Activity: Ad casi Followup: Gerry Varner MD [ACTIVE - CAN ADMIT] - Time spent managing pt's care (in minutes): 37
== END 2019-08-07 13:16 | disposition home or self-care (01) | DRG 378 ==
LOC: ER 10:49 → ERHOLD 12:50 → 2ND 14:20
PROVIDERS: ADMIT Family Medicine; ATTEND Family Medicine
PROC: 30233N1 Transfusion of Nonautologous Red Blood Cells into Peripheral Vein, Percutaneous Approach (ICD-10-PCS; principal; 2019-08-05)
PROC: 0DB78ZX Excision of Stomach, Pylorus, Via Natural or Artificial Opening Endoscopic, Diagnostic (ICD-10-PCS; 2019-08-06)
DX: K25.4 Chronic or unspecified gastric ulcer with hemorrhage (principal); D62 Acute posthemorrhagic anemia; I10 Essential (primary) hypertension; F41.1 Generalized anxiety disorder; D50.9 Iron deficiency anemia, unspecified; F17.210 Nicotine dependence, cigarettes, uncomplicated; Z91.120 Patient's intentional underdosing of medication regimen due to financial hardship; Z79.899 Other long term (current) drug therapy; Z86.14 Personal history of Methicillin resistant Staphylococcus aureus infection
CPT/HCPCS: 36415; 36430; 71045; 80048; 80076; 81003; 81025; 83690; 83735; 83880; 84484; 85025; 85610; 86850; 86900; 86901; 88305; 88312; 93005; 94760; 96361; 96374; 96375; 99285; C9113; J0171; J0360; J1940; J2270; J2405; J2704; J7030; J7120; J7799; P9016

== ENCOUNTER 2019-08-10 01:44 | Emergency (ER) | payer OTHER, SELFPAY ==
--- OUTSIDE RECORDS SUMMARY | 2019-08-10 01:48 | XMS REPORT ---
:1975 [facility] [address] [place] [id number] Care Team Providers Name Role Phone MAX [...] Comments SODIUM (BEAKER) (test 140 meq/L 136-145 szrm=407) POTASSIUM (BEAKER) (test 4.0 meq/L 3.5-5.1 qhcc=996) CHLORIDE (BEAKER) (test 111 meq/L 98-107 xeor=109) CO2 (BEAKER) (test vlpg=496) 23 meq/L 22-29 BLOOD UREA NITROGEN (BEAKER) 29 mg/dL 7-21 (test lqbr=413) CREATININE (BEAKER) (test 1.80 mg/dL 0.57-1.25 cxzv=663) GLUCOSE RANDOM (BEAKER) 102 mg/dL 70-105 (test ayfl=953) CALCIUM (BEAKER) (test 7.7 mg/dL 8.4-10.2 tosy=511) EGFR (BEAKER) (test 31 mL/min/1.73 sq m ESTIMATED GFR IS NOT vclk=2981) ACCURATE CREATININE CLEARANCE IN PREDICTING GLOMERULAR FILTRATION RATE. ESTIMATED GFR IS NOT APPLICABLE FOR DIALYSIS PATIENTS. Dental Equipment Repairer ID - PIAYA LCBC W/PLT COUNT & AUTO [id number] 05:52:00 Test Item Value Reference Range Comments WHITE BLOOD CELL COUNT (BEAKER) (test homr=213) 9.0 K/ L 3.5-10.5 RED BLOOD CELL COUNT (BEAKER) (test iwhh=265) 3.09 M/ L 3.93-5.22 HEMOGLOBIN (BEAKER) (test ycsf=467) 8.9 GM/DL 11.2-15.7 HEMATOCRIT (BEAKER) (test mwzr=789) 27.1 % 34.1-44.9 MEAN CORPUSCULAR VOLUME (BEAKER) (test ebzd=689) 87.7 fL 79.4-94.8 MEAN CORPUSCULAR HEMOGLOBIN (BEAKER) (test 28.8 pg 25.6-32.2 pjba=155) MEAN CORPUSCULAR HEMOGLOBIN CONC (BEAKER) (test 32.8 GM/DL 32.2-35.5 agff=224) RED CELL DISTRIBUTION WIDTH (BEAKER) (test 18.5 % 11.7-14.4 fqig=555) PLATELET COUNT (BEAKER) (test twum=863) 233 K/CU MM 150-450 MEAN PLATELET VOLUME (BEAKER) (test tpme=204) 10.7 fL 9.4-12.3 NUCLEATED RED BLOOD CELLS (BEAKER) (test 0 /100 WBC 0-0 jafy=309) NEUTROPHILS RELATIVE PERCENT (BEAKER) (test 74 % qpub=842) LYMPHOCYTES RELATIVE PERCENT (BEAKER) (test 18 % osvs=807) MONOCYTES RELATIVE PERCENT (BEAKER) (test 5 % xyft=427) EOSINOPHILS RELATIVE PERCENT (BEAKER) (test 2 % dkqy=290) BASOPHILS RELATIVE PERCENT (BEAKER) (test 0 % xmqf=619) NEUTROPHILS ABSOLUTE COUNT (BEAKER) (test 6.67 K/ L 1.56-6.13 imht=811) LYMPHOCYTES ABSOLUTE COUNT (BEAKER) (test 1.59 K/ L 1.18-3.74 hctz=376) MONOCYTES ABSOLUTE COUNT (BEAKER) (test 0.47 K/ L 0.24-0.36 okhz=737) EOSINOPHILS ABSOLUTE COUNT (BEAKER) (test 0.18 K/ L 0.04-0.36 zhhj=134) BASOPHILS ABSOLUTE COUNT (BEAKER) (test 0.03 K/ L 0.01-0.08 cvyy=884) IMMATURE GRANULOCYTES-RELATIVE PERCENT (BEAKER) 1 % 0-1 (test gtnm=4794) BASIC METABOLIC [id number] 04:49:00 Test Item Value Reference Range Comments SODIUM (BEAKER) (test 138 meq/L 136-145 cwul=789) POTASSIUM (BEAKER) (test 4.0 meq/L 3.5-5.1 ikgp=032) CHLORIDE (BEAKER) (test 111 meq/L 98-107 vqsc=001) CO2 (BEAKER) (test 21 meq/L 22-29 mljj=346) BLOOD UREA NITROGEN 40 mg/dL 7-21 (BEAKER) (test dfpv=882) CREATININE (BEAKER) (test 1.84 mg/dL 0.57-1.25 eksz=681) GLUCOSE RANDOM (BEAKER) 85 mg/dL 70-105 (test owjo=507) CALCIUM (BEAKER) (test 7.6 mg/dL 8.4-10.2 wkzk=078) EGFR (BEAKER) (test 30 mL/min/1.73 sq m ESTIMATED GFR IS NOT bsrt=4704) ACCURATE CREATININE CLEARANCE IN PREDICTING GLOMERULAR FILTRATION RATE. ESTIMATED GFR IS NOT APPLICABLE FOR DIALYSIS PATIENTS. Dental Equipment Repairer ID - PIAYA LCBC W/PLT COUNT & AUTO [id number] 04:28:00 Test Item Value Reference Range Comments WHITE BLOOD CELL COUNT (BEAKER) (test jtkt=289) 8.0 K/ L 3.5-10.5 RED BLOOD CELL COUNT (BEAKER) (test nrxb=672) 2.99 M/ L 3.93-5.22 HEMOGLOBIN (BEAKER) (test btoy=424) 8.4 GM/DL 11.2-15.7 HEMATOCRIT (BEAKER) (test kcpc=667) 25.1 % 34.1-44.9 MEAN CORPUSCULAR VOLUME (BEAKER) (test fkmg=536) 83.9 fL 79.4-94.8 MEAN CORPUSCULAR HEMOGLOBIN (BEAKER) (test 28.1 pg 25.6-32.2 wzyn=653) MEAN CORPUSCULAR HEMOGLOBIN CONC (BEAKER) (test 33.5 GM/DL 32.2-35.5 ekru=626) RED CELL DISTRIBUTION WIDTH (BEAKER) (test 17.7 % 11.7-14.4 qbqt=182) PLATELET COUNT (BEAKER) (test ragg=911) 204 K/CU MM 150-450 MEAN PLATELET VOLUME (BEAKER) (test rlvg=249) 10.4 fL 9.4-12.3 NUCLEATED RED BLOOD CELLS (BEAKER) (test 0 /100 WBC 0-0 wsxo=991) NEUTROPHILS RELATIVE PERCENT (BEAKER) (test 65 % iiyo=190) LYMPHOCYTES RELATIVE PERCENT (BEAKER) (test 27 % qdnp=553) MONOCYTES RELATIVE PERCENT (BEAKER) (test 5 % gnzh=299) EOSINOPHILS RELATIVE PERCENT (BEAKER) (test 2 % fnds=044) BASOPHILS RELATIVE PERCENT (BEAKER) (test 1 % yljo=213) NEUTROPHILS ABSOLUTE COUNT (BEAKER) (test 5.14 K/ L 1.56-6.13 rjnq=823) LYMPHOCYTES ABSOLUTE COUNT (BEAKER) (test 2.13 K/ L 1.18-3.74 praa=827) MONOCYTES ABSOLUTE COUNT (BEAKER) (test 0.39 K/ L 0.24-0.36 bkca=889) EOSINOPHILS ABSOLUTE COUNT (BEAKER) (test 0.18 K/ L 0.04-0.36 fyeo=519) BASOPHILS ABSOLUTE COUNT (BEAKER) (test 0.04 K/ L 0.01-0.08 sbnm=868) IMMATURE GRANULOCYTES-RELATIVE PERCENT (BEAKER) 1 % 0-1 (test hzlc=6531) HEMOGLOBIN AND [id number] 15:10:00 Test Item Value Reference Range Comments HEMOGLOBIN (BEAKER) (test admi=785) 8.2 GM/DL 11.2-15.7 HEMATOCRIT (BEAKER) (test nefz=482) 24.3 % 34.1-44.9 Dental Equipment Repairer ID - [id number] SMEAR, [id number] 14:02:00 Test Item Value Reference Range Comments EOSINOPHIL SMEAR, URINE (BEAKER) (test No EOS seen No EOS seen cpsu=5439) CREATININE, RANDOM [id number] 13:28:00 Test Item Value Reference Range Comments CREATININE URINE (BEAKER) (test musj=152) 55.5 mg/dL Reference Range: No NormalsOperator ID - ARBAM WSODIUM, RANDOM [id number] 13:28:00 Test Item Value Reference Range Comments SODIUM URINE (BEAKER) (test yuul=477) 30 meq/L Reference Range: No NormalsOperator ID - ABRAM LOPEZ/S, RENAL WITH [id number] 13:11:00Reason for exam:->andrea vs ckd, evaluate [...] Verified Date/Time: 07/26/2019 13:11:49 Reading Location: [address] Consult Reading Room OSMOLALITY, [id number] 12:37:00 Test Item Value Reference Range Comments OSMOLALITY URINE (BEAKER) (test ostb=013) 417 mOsm/kg 40-1,400 URINALYSIS [id number] 12:37:00 Test Item Value Reference Range Comments RBC UA (BEAKER) (test zgvl=172) 2 /HPF WBC UA (BEAKER) (test bjxy=823) 1 /HPF BACTERIA (BEAKER) (test iwyd=111) Many SQUAMOUS EPITHELIAL (BEAKER) (test ryrl=200) 2 /HPF Dental Equipment Repairer ID - techURINALYSIS WITH MICROSCOPIC IF [id number] 12:36:00 Test Item Value Reference Range Comments COLOR (BEAKER) (test oefs=028) Light Yellow CLARITY (BEAKER) (test cfte=702) Clear SPECIFIC GRAVITY UA (BEAKER) (test yrha=235) 1.013 1.001-1.035 PH UA (BEAKER) (test fyof=649) 6.0 5.0-8.0 PROTEIN UA (BEAKER) (test yzxb=545) 100 mg/dL Negative GLUCOSE UA (BEAKER) (test swoa=895) Negative Negative KETONES UA (BEAKER) (test kcnd=033) Negative Negative BILIRUBIN UA (BEAKER) (test lvef=002) Negative Negative BLOOD UA (BEAKER) (test ghed=845) Small Negative NITRITE UA (BEAKER) (test flir=825) Negative Negative LEUKOCYTE ESTERASE UA (BEAKER) (test zahp=900) Negative Negative UROBILINOGEN UA (BEAKER) (test init=395) 0.2 mg/dL 0.2-1.0 SOURCE(BEAKER) (test ocbn=3287) Dental Equipment Repairer ID - [auto]BASIC METABOLIC [id number] 05:38:00 Test Item Value Reference Range Comments SODIUM (BEAKER) (test 135 meq/L 136-145 mjzp=330) POTASSIUM (BEAKER) (test 3.8 meq/L 3.5-5.1 yotg=389) CHLORIDE (BEAKER) (test 111 meq/L 98-107 wxlb=128) CO2 (BEAKER) (test 17 meq/L 22-29 yolf=617) BLOOD UREA NITROGEN 60 mg/dL 7-21 (BEAKER) (test ixxv=286) CREATININE (BEAKER) (test 2.13 mg/dL 0.57-1.25 igzt=329) GLUCOSE RANDOM (BEAKER) 89 mg/dL 70-105 (test zaky=375) CALCIUM (BEAKER) (test 7.3 mg/dL 8.4-10.2 knqu=525) EGFR (BEAKER) (test 25 mL/min/1.73 sq m ESTIMATED GFR IS NOT dwav=4397) ACCURATE CREATININE CLEARANCE IN PREDICTING GLOMERULAR FILTRATION RATE. ESTIMATED GFR IS NOT APPLICABLE FOR DIALYSIS PATIENTS. Dental Equipment Repairer ID - JUANY MCBC W/PLT COUNT & AUTO [id number] 05:19:00 Test Item Value Reference Range Comments WHITE BLOOD CELL COUNT (BEAKER) (test qbid=938) 7.5 K/ L 3.5-10.5 RED BLOOD CELL COUNT (BEAKER) (test wnaq=588) 2.60 M/ L 3.93-5.22 HEMOGLOBIN (BEAKER) (test zkmh=772) 7.4 GM/DL 11.2-15.7 HEMATOCRIT (BEAKER) (test vvwt=489) 21.6 % 34.1-44.9 MEAN CORPUSCULAR VOLUME (BEAKER) (test gipg=171) 83.1 fL 79.4-94.8 MEAN CORPUSCULAR HEMOGLOBIN (BEAKER) (test 28.5 pg 25.6-32.2 uybn=457) MEAN CORPUSCULAR HEMOGLOBIN CONC (BEAKER) (test 34.3 GM/DL 32.2-35.5 tclc=451) RED CELL DISTRIBUTION WIDTH (BEAKER) (test 17.2 % 11.7-14.4 nbno=167) PLATELET COUNT (BEAKER) (test eeif=848) 158 K/CU MM 150-450 MEAN PLATELET VOLUME (BEAKER) (test hvux=387) 10.5 fL 9.4-12.3 NUCLEATED RED BLOOD CELLS (BEAKER) (test 0 /100 WBC 0-0 tgpl=965) NEUTROPHILS RELATIVE PERCENT (BEAKER) (test 64 % ycfs=120) LYMPHOCYTES RELATIVE PERCENT (BEAKER) (test 29 % hhlt=114) MONOCYTES RELATIVE PERCENT (BEAKER) (test 5 % orrn=556) EOSINOPHILS RELATIVE PERCENT (BEAKER) (test 1 % lqru=591) BASOPHILS RELATIVE PERCENT (BEAKER) (test 0 % uext=731) NEUTROPHILS ABSOLUTE COUNT (BEAKER) (test 4.79 K/ L 1.56-6.13 fgcl=410) LYMPHOCYTES ABSOLUTE COUNT (BEAKER) (test 2.21 K/ L 1.18-3.74 nhfx=718) MONOCYTES ABSOLUTE COUNT (BEAKER) (test 0.38 K/ L 0.24-0.36 dpsj=140) EOSINOPHILS ABSOLUTE COUNT (BEAKER) (test 0.07 K/ L 0.04-0.36 nitk=210) BASOPHILS ABSOLUTE COUNT (BEAKER) (test 0.02 K/ L 0.01-0.08 wjpv=929) IMMATURE GRANULOCYTES-RELATIVE PERCENT (BEAKER) 1 % 0-1 (test jpjb=9944) HEMOGLOBIN AND [id number] 21:42:00 Test Item Value Reference Range Comments HEMOGLOBIN (BEAKER) (test ebvm=638) 6.6 GM/DL 11.2-15.7 HEMATOCRIT (BEAKER) (test cuei=804) 18.8 % 34.1-44.9 Dental Equipment Repairer ID - [id number] AND [id number] 20:23:00 Test Item Value Reference Range Comments HEMOGLOBIN (BEAKER) (test dpiy=454) 6.9 GM/DL 11.2-15.7 HEMATOCRIT (BEAKER) (test qhzj=929) 19.9 % 34.1-44.9 Dental Equipment Repairer ID - [id number] W/PLT COUNT & AUTO [id number] 12:49:00 Test Item Value Reference Range Comments WHITE BLOOD CELL COUNT (BEAKER) (test uxbb=971) 13.7 K/ L 3.5-10.5 RED BLOOD CELL COUNT (BEAKER) (test eyoq=236) 2.39 M/ L 3.93-5.22 HEMOGLOBIN (BEAKER) (test mhil=640) 6.7 GM/DL 11.2-15.7 HEMATOCRIT (BEAKER) (test wjjv=506) 20.5 % 34.1-44.9 MEAN CORPUSCULAR VOLUME (BEAKER) (test mbob=792) 85.8 fL 79.4-94.8 MEAN CORPUSCULAR HEMOGLOBIN (BEAKER) (test 28.0 pg 25.6-32.2 kusk=121) MEAN CORPUSCULAR HEMOGLOBIN CONC (BEAKER) (test 32.7 GM/DL 32.2-35.5 gawq=970) RED CELL DISTRIBUTION WIDTH (BEAKER) (test 16.1 % 11.7-14.4 zeuq=178) PLATELET COUNT (BEAKER) (test smjg=268) 189 K/CU MM 150-450 MEAN PLATELET VOLUME (BEAKER) (test qopn=548) 10.8 fL 9.4-12.3 NUCLEATED RED BLOOD CELLS (BEAKER) (test 0 /100 WBC 0-0 drsx=939) NEUTROPHILS RELATIVE PERCENT (BEAKER) (test 82 % bckr=995) LYMPHOCYTES RELATIVE PERCENT (BEAKER) (test 14 % uhvl=951) MONOCYTES RELATIVE PERCENT (BEAKER) (test 3 % jaed=367) EOSINOPHILS RELATIVE PERCENT (BEAKER) (test 0 % mgjw=517) BASOPHILS RELATIVE PERCENT (BEAKER) (test 0 % bkxv=282) NEUTROPHILS ABSOLUTE COUNT (BEAKER) (test 11.16 K/ L 1.56-6.13 pkab=633) LYMPHOCYTES ABSOLUTE COUNT (BEAKER) (test 1.90 K/ L 1.18-3.74 jmfh=079) MONOCYTES ABSOLUTE COUNT (BEAKER) (test 0.43 K/ L 0.24-0.36 mmxa=111) EOSINOPHILS ABSOLUTE COUNT (BEAKER) (test 0.01 K/ L 0.04-0.36 jovj=362) BASOPHILS ABSOLUTE COUNT (BEAKER) (test 0.02 K/ L 0.01-0.08 xxez=565) IMMATURE GRANULOCYTES-RELATIVE PERCENT (BEAKER) 1 % 0-1 (test curj=0004) BLOOD GAS, [id number] 12:42:00 Test Item Value Reference Range Comments PH VENOUS (BEAKER) (test crjd=344) 7.32 7.32-7.42 PCO2 VENOUS (BEAKER) (test qgur=061) 34 mmHg 41-51 PO2 VENOUS (BEAKER) (test ooup=612) 45 mmHg 25-40 O2 SATURATION VENOUS (BEAKER) (test tyrb=059) 78.0 % 40.0-70.0 HCO3 VENOUS (BEAKER) (test xtmd=154) 17 mmol/L 21-29 BASE EXCESS VENOUS (BEAKER) (test zemr=278) -8.6 mmol/L -2.0-3.0 PATIENT TEMPERATURE (BEAKER) (test rqiw=3019) 37.0 C FIO2 (BEAKER) (test keyl=7645) 21.0 % CBC W/PLT COUNT & AUTO [id number] 03:58:00 Test Item Value Reference Range Comments WHITE BLOOD CELL COUNT (BEAKER) (test yeug=596) 11.8 K/ L 3.5-10.5 RED BLOOD CELL COUNT (BEAKER) (test ciii=387) 2.55 M/ L 3.93-5.22 HEMOGLOBIN (BEAKER) (test neop=778) 7.3 GM/DL 11.2-15.7 HEMATOCRIT (BEAKER) (test delh=555) 21.5 % 34.1-44.9 MEAN CORPUSCULAR VOLUME (BEAKER) (test nejl=980) 84.3 fL 79.4-94.8 MEAN CORPUSCULAR HEMOGLOBIN (BEAKER) (test 28.6 pg 25.6-32.2 qpqb=794) MEAN CORPUSCULAR HEMOGLOBIN CONC (BEAKER) (test 34.0 GM/DL 32.2-35.5 xxsk=361) RED CELL DISTRIBUTION WIDTH (BEAKER) (test 15.6 % 11.7-14.4 xwaq=161) PLATELET COUNT (BEAKER) (test fcih=784) 164 K/CU MM 150-450 MEAN PLATELET VOLUME (BEAKER) (test qwjg=824) 10.5 fL 9.4-12.3 NUCLEATED RED BLOOD CELLS (BEAKER) (test 0 /100 WBC 0-0 gxmr=678) NEUTROPHILS RELATIVE PERCENT (BEAKER) (test 90 % ardv=585) LYMPHOCYTES RELATIVE PERCENT (BEAKER) (test 8 % yyam=641) MONOCYTES RELATIVE PERCENT (BEAKER) (test 2 % ybaw=104) EOSINOPHILS RELATIVE PERCENT (BEAKER) (test 0 % atic=534) BASOPHILS RELATIVE PERCENT (BEAKER) (test 0 % ypqr=575) NEUTROPHILS ABSOLUTE COUNT (BEAKER) (test 10.55 K/ L 1.56-6.13 sylr=450) LYMPHOCYTES ABSOLUTE COUNT (BEAKER) (test 0.88 K/ L 1.18-3.74 vsfi=319) MONOCYTES ABSOLUTE COUNT (BEAKER) (test 0.18 K/ L 0.24-0.36 yqgh=480) EOSINOPHILS ABSOLUTE COUNT (BEAKER) (test 0.00 K/ L 0.04-0.36 xbfp=868) BASOPHILS ABSOLUTE COUNT (BEAKER) (test 0.01 K/ L 0.01-0.08 zlfp=582) IMMATURE GRANULOCYTES-RELATIVE PERCENT (BEAKER) 1 % 0-1 (test aiut=0584) BASIC METABOLIC [id number] 03:56:00 Test Item Value Reference Range Comments SODIUM (BEAKER) (test 136 meq/L 136-145 ljup=102) POTASSIUM (BEAKER) (test 4.0 meq/L 3.5-5.1 Specimen slightly qiqy=923) hemolyzed CHLORIDE (BEAKER) (test 116 meq/L 98-107 peyn=683) CO2 (BEAKER) (test 14 meq/L 22-29 ktty=215) BLOOD UREA NITROGEN 70 mg/dL 7-21 (BEAKER) (test piso=477) CREATININE (BEAKER) (test 1.85 mg/dL 0.57-1.25 Specimen slightly lxzy=694) hemolyzed GLUCOSE RANDOM (BEAKER) 107 mg/dL 70-105 (test cmue=747) CALCIUM (BEAKER) (test 6.5 mg/dL 8.4-10.2 lpbj=887) EGFR (BEAKER) (test 30 mL/min/1.73 sq m ESTIMATED GFR IS NOT rlcw=2271) ACCURATE CREATININE CLEARANCE IN PREDICTING GLOMERULAR FILTRATION RATE. ESTIMATED GFR IS NOT APPLICABLE FOR DIALYSIS PATIENTS. Dental Equipment Repairer ID - ROSALBA WBASIC METABOLIC [id number] 23:35:00 Test Item Value Reference Range Comments SODIUM (BEAKER) (test 134 meq/L 136-145 cogd=821) POTASSIUM (BEAKER) (test 4.4 meq/L 3.5-5.1 Specimen slightly igyx=326) hemolyzed CHLORIDE (BEAKER) (test 113 meq/L 98-107 dlyu=501) CO2 (BEAKER) (test 15 meq/L 22-29 hyac=934) BLOOD UREA NITROGEN 86 mg/dL 7-21 (BEAKER) (test thqd=528) CREATININE (BEAKER) (test 2.05 mg/dL 0.57-1.25 Specimen slightly yymu=195) hemolyzed GLUCOSE RANDOM (BEAKER) 135 mg/dL 70-105 (test jxaj=674) CALCIUM (BEAKER) (test 7.2 mg/dL 8.4-10.2 igma=275) EGFR (BEAKER) (test 26 mL/min/1.73 sq m ESTIMATED GFR IS NOT nhqb=9328) ACCURATE CREATININE CLEARANCE IN PREDICTING GLOMERULAR FILTRATION RATE. ESTIMATED GFR IS NOT APPLICABLE FOR DIALYSIS PATIENTS. Dental Equipment Repairer ID - [id number] 23:34:00 Test Item Value Reference Range Comments MAGNESIUM (BEAKER) (test 2.0 mg/dL 1.6-2.6 Specimen slightly hemolyzed oria=261) Dental Equipment Repairer ID - [id number] 23:34:00 Test Item Value Reference Range Comments PHOSPHORUS (BEAKER) (test 3.3 mg/dL 2.3-4.7 Specimen slightly hemolyzed bdrq=494) Dental Equipment Repairer ID - DBCBC W/PLT COUNT & AUTO [id number] 23:17:00 Test Item Value Reference Range Comments WHITE BLOOD CELL COUNT (BEAKER) (test drfv=073) 13.8 K/ L 3.5-10.5 RED BLOOD CELL COUNT (BEAKER) (test aymi=666) 2.67 M/ L 3.93-5.22 HEMOGLOBIN (BEAKER) (test qhkh=911) 7.9 GM/DL 11.2-15.7 HEMATOCRIT (BEAKER) (test xfuk=955) 22.7 % 34.1-44.9 MEAN CORPUSCULAR VOLUME (BEAKER) (test kcox=581) 85.0 fL 79.4-94.8 MEAN CORPUSCULAR HEMOGLOBIN (BEAKER) (test 29.6 pg 25.6-32.2 mskj=692) MEAN CORPUSCULAR HEMOGLOBIN CONC (BEAKER) (test 34.8 GM/DL 32.2-35.5 wosz=126) RED CELL DISTRIBUTION WIDTH (BEAKER) (test 15.2 % 11.7-14.4 oeqw=669) PLATELET COUNT (BEAKER) (test wqex=531) 155 K/CU MM 150-450 MEAN PLATELET VOLUME (BEAKER) (test mosk=810) 10.8 fL 9.4-12.3 NUCLEATED RED BLOOD CELLS (BEAKER) (test 0 /100 WBC 0-0 vpmn=806) NEUTROPHILS RELATIVE PERCENT (BEAKER) (test 94 % wwdu=505) LYMPHOCYTES RELATIVE PERCENT (BEAKER) (test 4 % pazr=639) MONOCYTES RELATIVE PERCENT (BEAKER) (test 1 % nhur=398) EOSINOPHILS RELATIVE PERCENT (BEAKER) (test 0 % lzqv=900) BASOPHILS RELATIVE PERCENT (BEAKER) (test 0 % sakp=113) NEUTROPHILS ABSOLUTE COUNT (BEAKER) (test 13.00 K/ L 1.56-6.13 jfje=762) LYMPHOCYTES ABSOLUTE COUNT (BEAKER) (test 0.57 K/ L 1.18-3.74 ityv=811) MONOCYTES ABSOLUTE COUNT (BEAKER) (test 0.08 K/ L 0.24-0.36 oqar=534) EOSINOPHILS ABSOLUTE COUNT (BEAKER) (test 0.01 K/ L 0.04-0.36 fsfp=747) BASOPHILS ABSOLUTE COUNT (BEAKER) (test 0.02 K/ L 0.01-0.08 pwsb=368) IMMATURE GRANULOCYTES-RELATIVE PERCENT (BEAKER) 1 % 0-1 (test unug=7266) CALCIUM, [id number] 23:12:00 Test Item Value Reference Range Comments CALCIUM IONIZED (BEAKER) (test wzbu=349) 1.07 mmol/L 1.12-1.27 PH, BLOOD (BEAKER) (test ssmq=8086) 7.38 EOSINOPHIL SMEAR, [id number] 20:57:00 Test Item Value Reference Range Comments EOSINOPHIL SMEAR, URINE (BEAKER) (test No EOS seen No EOS seen uihr=3534) SODIUM, RANDOM [id number] 20:33:00 Test Item Value Reference Range Comments SODIUM URINE (BEAKER) (test kxro=178) 22 meq/L Reference Range: No NormalsOperator ID - DBCREATININE, RANDOM [id number] 20 :32:00 Test Item Value Reference Range Comments CREATININE URINE (BEAKER) (test bavq=656) 49.7 mg/dL Reference Range: No NormalsOperator ID - DBOSMOLALITY, [id number] 20:18:00 Test Item Value Reference Range Comments OSMOLALITY URINE (BEAKER) (test ffom=121) 468 mOsm/kg 40-1,400 HEMOGLOBIN AND [id number] 13:35:00 Test Item Value Reference Range Comments HEMOGLOBIN (BEAKER) (test rsve=270) 4.9 GM/DL 11.2-15.7 HEMATOCRIT (BEAKER) (test nbre=408) 15.0 % 34.1-44.9 Dental Equipment Repairer ID - [id number] METABOLIC [id number] 11:14:00 Test Item Value Reference Range Comments SODIUM (BEAKER) (test 137 meq/L 136-145 zklk=960) POTASSIUM (BEAKER) (test 4.4 meq/L 3.5-5.1 ihav=412) CHLORIDE (BEAKER) (test 114 meq/L 98-107 nisn=849) CO2 (BEAKER) (test 20 meq/L 22-29 qhic=499) BLOOD UREA NITROGEN 86 mg/dL 7-21 (BEAKER) (test lxhu=895) CREATININE (BEAKER) (test 2.02 mg/dL 0.57-1.25 jkzx=816) GLUCOSE RANDOM (BEAKER) 110 mg/dL 70-105 (test htet=845) CALCIUM (BEAKER) (test 6.9 mg/dL 8.4-10.2 exjo=642) EGFR (BEAKER) (test 27 mL/min/1.73 sq m ESTIMATED GFR IS NOT aefe=4461) ACCURATE CREATININE CLEARANCE IN PREDICTING GLOMERULAR FILTRATION RATE. ESTIMATED GFR IS NOT APPLICABLE FOR DIALYSIS PATIENTS. Dental Equipment Repairer ID - AAHAMIDHEMOGLOBIN AND [id number] 10:55:00 Test Item Value Reference Range Comments HEMOGLOBIN (BEAKER) (test wxli=134) 5.6 GM/DL 11.2-15.7 HEMATOCRIT (BEAKER) (test ndzh=703) 17.5 % 34.1-44.9 Dental Equipment Repairer ID - LoriBASIC METABOLIC [id number] 02:47:00 Test Item Value Reference Range Comments SODIUM (BEAKER) (test 138 meq/L 136-145 xugg=983) POTASSIUM (BEAKER) (test 4.0 meq/L 3.5-5.1 xtep=870) CHLORIDE (BEAKER) (test 113 meq/L 98-107 fwcv=222) CO2 (BEAKER) (test 19 meq/L 22-29 tfum=730) BLOOD UREA NITROGEN 85 mg/dL 7-21 (BEAKER) (test jmug=783) CREATININE (BEAKER) (test 2.10 mg/dL 0.57-1.25 ozhq=990) GLUCOSE RANDOM (BEAKER) 131 mg/dL 70-105 (test pxef=741) CALCIUM (BEAKER) (test 7.2 mg/dL 8.4-10.2 uyxx=555) EGFR (BEAKER) (test 26 mL/min/1.73 sq m ESTIMATED GFR IS NOT phbr=7581) ACCURATE CREATININE CLEARANCE IN PREDICTING GLOMERULAR FILTRATION RATE. ESTIMATED GFR IS NOT APPLICABLE FOR DIALYSIS PATIENTS. Dental Equipment Repairer ID - ROSALBA WTROPONIN [id number] 02:41:00 Test Item Value Reference Range Comments TROPONIN I (BEAKER) (test rxuu=859) 0.03 ng/mL 0.00-0.03 Troponin I (TnI) levels [...] failure, acidosis, acute neurological disease, and persistent tachyarrhythmia.Dental Equipment Repairer ID - ROSALBA WHEPATIC FUNCTION [id number] 02:34:00 Test Item Value Reference Range Comments TOTAL PROTEIN (BEAKER) (test ppqf=481) 4.3 gm/dL 6.0-8.3 ALBUMIN (BEAKER) (test xeku=5277) 2.3 g/dL 3.5-5.0 BILIRUBIN TOTAL (BEAKER) (test jdzq=671) 0.2 mg/dL 0.2-1.2 BILIRUBIN DIRECT (BEAKER) (test flff=766) 0.1 mg/dL 0.1-0.5 ALKALINE PHOSPHATASE (BEAKER) (test nflc=753) 32 U/L 40-150 AST (SGOT) (BEAKER) (test hzaq=257) 8 U/L 5-34 ALT (SGPT) (BEAKER) (test zwmi=755) 6 U/L 6-55 Dental Equipment Repairer ID - ROSALBA WPROTHROMBIN [id number] 02:32:00 Test Item Value Reference Range Comments PROTIME (BEAKER) (test ziyw=787) 15.0 seconds 11.9-14.2 INR (BEAKER) (test musb=333) 1.2 <=5.9 Effective 10/02/2018: PT Reference Range ChangeNew: 11.9-14.2 Previous: 11.7- 14.7RECOMMENDED COUMADIN/WARFARIN INR THERAPY RANGESSTANDARD DOSE: 2.0-3.0 Includes: PROPHYLAXIS for venous thrombosis, systemic embolization; TREATMENT for venous thrombosis and/or pulmonary embolus.HIGH RISK: Target INR is2.5-3.5 for patients wiht mechanical heart valves.CBC W/PLT COUNT & AUTO [id number] 02:32:00 Test Item Value Reference Range Comments WHITE BLOOD CELL COUNT (BEAKER) (test cbcw=835) 9.5 K/ L 3.5-10.5 RED BLOOD CELL COUNT (BEAKER) (test racu=233) 2.01 M/ L 3.93-5.22 HEMOGLOBIN (BEAKER) (test zurf=065) 5.8 GM/DL 11.2-15.7 HEMATOCRIT (BEAKER) (test oaer=379) 17.3 % 34.1-44.9 MEAN CORPUSCULAR VOLUME (BEAKER) (test dwhp=355) 86.1 fL 79.4-94.8 MEAN CORPUSCULAR HEMOGLOBIN (BEAKER) (test 28.9 pg 25.6-32.2 jymv=766) MEAN CORPUSCULAR HEMOGLOBIN CONC (BEAKER) (test 33.5 GM/DL 32.2-35.5 mnng=092) RED CELL DISTRIBUTION WIDTH (BEAKER) (test 16.1 % 11.7-14.4 jniu=694) PLATELET COUNT (BEAKER) (test oatf=344) 152 K/CU MM 150-450 MEAN PLATELET VOLUME (BEAKER) (test jkku=980) 10.9 fL 9.4-12.3 NUCLEATED RED BLOOD CELLS (BEAKER) (test 0 /100 WBC 0-0 ktnf=721) NEUTROPHILS RELATIVE PERCENT (BEAKER) (test 89 % tohy=024) LYMPHOCYTES RELATIVE PERCENT (BEAKER) (test 8 % qhas=194) MONOCYTES RELATIVE PERCENT (BEAKER) (test 2 % ysfv=515) EOSINOPHILS RELATIVE PERCENT (BEAKER) (test 0 % yidx=947) BASOPHILS RELATIVE PERCENT (BEAKER) (test 0 % uhtz=104) NEUTROPHILS ABSOLUTE COUNT (BEAKER) (test 8.40 K/ L 1.56-6.13 ijeh=369) LYMPHOCYTES ABSOLUTE COUNT (BEAKER) (test 0.79 K/ L 1.18-3.74 fqjb=733) MONOCYTES ABSOLUTE COUNT (BEAKER) (test 0.20 K/ L 0.24-0.36 rszk=274) EOSINOPHILS ABSOLUTE COUNT (BEAKER) (test 0.01 K/ L 0.04-0.36 conh=665) BASOPHILS ABSOLUTE COUNT (BEAKER) (test 0.02 K/ L 0.01-0.08 ludn=311) IMMATURE GRANULOCYTES-RELATIVE PERCENT (BEAKER) 1 % 0-1 (test gcsl=3597)
[2019-08-10 02:17] LABS: Absolute Lymphocytes (CBC) 0.9 K/uL (0.7-4.9); Basophils % 0.7 % (0-1.3); Lymphocytes % 16.5 % (15.3-44.8); MPV 8.7 fL (7.6-11.3)
[2019-08-10 02:19] LABS: Hematocrit 19.8 % (36.0-45.0); Protime INR 0.92
[2019-08-10] MEDS ORDERED: NA CHLORIDE 0.9% 250 ML ONE (02:36)
[2019-08-10] MEDS ORDERED: PANTOPRAZOLE 40 MG INJ ONE (02:36)
[2019-08-10 02:42] LABS: ALT/SGPT 11 U/L (12-78); AST/SGOT 9 U/L (15-37); Alkaline Phosphatase 44 U/L (45-117); BUN Blood Urea Nitrogen 48 mg/dL (7-18); Bicarbonate 22 mmol/L (21-32); Bilirubin Direct < 0.1 mg/dL (0-0.2); Bilirubin Total 0.2 mg/dL (0.2-1.0); Glucose Level 132 mg/dL (74-106); Lipase 405 U/L (73-393); Potassium 4.4 mmol/L (3.5-5.1); Sodium Level 143 mmol/L (136-145)
[2019-08-10] MEDS ORDERED: ONDANSETRON 4 MG/2 ML VIAL ONE (02:53)
[2019-08-10] MEDS ORDERED: MORPHINE 2 MG/ML SYR ONE ×3 (02:53→06:30)
--- NOTE | 2019-08-10 04:14 | ER ---
Nurse's Notes [facility] Name: Kimberley Whitmore Age: 43 yrs Sex: Female : 1975 Arrival Date: 08/10/2019 Time: 01:45 Bed 4 Private MD: Diagnosis: Gastrointestinal hemorrhage, unspecified;Anemia in chronic diseases classified elsewhere Presentation: 08/09 01:40 Chief complaint: Patient states: that she started to have abd pain and then vomited fc blood after having a bowel movement. Upon EMS picking her up they stated that she vomited 3 pints of dark red liquid. pt was here and admitted 2 1/2 days ago for the same thing and EGD was done. Told she had stomach ulcers. Coronavirus screen: Proceed with normal triage. Patient denies a cough. Patient denies shortness of breath or difficulty breathing. Patient denies measured and/or subjective temperature greater than 100.4F prior to today's visit. Patient denies travel on a cruise ship or to a country the [facility] currently lists as an affected area. Patient denies contact with known and/or suspected case of COVID-19. Ebola Screen: Patient negative for fever greater than or equal to 101.5 degrees Fahrenheit, and additional compatible Ebola Virus Disease symptoms Patient denies exposure to infectious person. Patient denies travel to an Ebola-affected area in the 21 days before illness onset. Initial Sepsis Screen: Does the patient meet any 2 criteria? RR > 20 per min. No. Patient's initial sepsis screen is negative. Does the patient have a suspected source of infection? No. Patient's initial sepsis screen is negative. Risk Assessment: Do you want to hurt yourself or someone else? Patient reports no desire to harm self or others. 01:40 Method Of Arrival: EMS: [facility] 01:40 Acuity: MICHAEL 3 01:40 Onset of symptoms was August 10, 2019 at 00:00. Care prior to arrival: None. 02:07 Onset of symptoms was August 10, 2019. 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 - Social history:: Smoking status: Patient reports the use of cigarette tobacco products, smokes one-half pack cigarettes per day, Patient uses street drugs, marijuana, Patient/guardian denies using alcohol. Screenin:54 Abuse screen: Denies threats or abuse. Nutritional screening: No deficits noted. bb Tuberculosis screening: No symptoms or risk factors identified. Fall Risk None identified. Assessment: 01:54 General: Appears uncomfortable, unkempt, Behavior is cooperative, anxious. Pain: bb Complains of pain in abdomen. Neuro: Level of Consciousness is awake, alert, obeys commands, Oriented to person, place, time, situation. Cardiovascular: Heart tones S1 S2 present Capillary refill < 3 seconds Patient's skin is warm and dry. Respiratory: Airway is patent Respiratory effort is even, unlabored, Respiratory pattern is regular. GI: Abdomen is round Bowel sounds present X 4 quads. Abd is soft X 4 quads Abdomen is tender to palpation X 4 quads. Reports vomiting. Derm: Skin is intact, Skin is dry. Musculoskeletal: Circulation, motion, and sensation intact. 01:54 Reassessment: pt c/o abdominal pain asking for bedside commode. bb 04:04 Reassessment: report called to Henny Walsh RN for [facility]. bb 06:09 Reassessment: blood transfusion of the PRBC 1 unit done, without signs of reaction. rv Vital Signs: 01:40 BP 107 / 80; Pulse 72; Resp 28; Temp 97.4(TE); Pulse Ox 100% on R/A; Weight 79.38 kg (R); Height 5 ft. 5 in. (165.10 cm) (R); Pain 8/10; 03:16 BP 120 / 79; Pulse 69; Resp 22 S; Pulse Ox 100% ; bb 04:09 BP 123 / 73; Pulse 79; Resp 22 S; Pulse Ox 100% on R/A; bb 04:30 BP 133 / 95; Pulse 66; Resp 16; Pulse Ox 98% on R/A; rv 05:00 BP 120 / 95; Pulse 64; Resp 18; Temp 97.9; Pulse Ox 100% on R/A; rv 05:30 BP 127 / 85; Pulse 68; Resp 17; Temp 97.9; Pulse Ox 100% on R/A; rv 06:00 BP 125 / 83; Pulse 66; Resp 18; Temp 98; Pulse Ox 100% on R/A; rv 01:40 Body Mass Index 29.12 (79.38 kg, 165.10 cm) ED Course: 01:40 Arm band placed on Patient placed in an exam room, on a stretcher. fc 01:45 Patient arrived in ED. ds1 01:50 Inserted saline lock: 20 gauge in right antecubital area, using aseptic technique. bb Blood collected. 01:51 Esha Woods, RN is Primary Nurse. bb 01:54 Triage completed. fc 01:54 Patient has correct armband on for positive identification. Placed in gown. Bed in low bb position. Call light in reach. Side rails up X2. 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 Pulse ox on. NIBP on. Warm blanket given. bedside commode provided. 01:56 Alejandro Marinelli MD is Attending Physician. tw4 02:07 Initial lab(s) drawn, by me, sent to lab. T\T\S collected, blood band applied to patient. bb 02:08 Type And Screen Sent. ds4 02:08 Ptt, Activated Sent. ds4 02:08 PT-INR Sent. ds4 02:08 Basic Metabolic Panel Sent. ds4 02:08 Lipase Sent. ds4 02:08 CBC with Diff Sent. ds4 02:09 Creatinine for Radiology Sent. ds4 02:09 Hepatic Function Sent. ds4 02:10 Assisted to bedside commode. pt had large black tarry stool which was hemocult positive.bb 02:19 Notified ED physician of a critical lab result(s). HGB of 6.[address] Marinelli bb notified. 03:11 Missed attempt(s): 18 gauge in left antecubital area. Bleeding controlled, band aid bb applied, catheter tip intact. 03:17 Inserted saline lock: 20 gauge in left hand, using aseptic technique. rr5 04:05 No provider procedures requiring assistance completed. Patient transferred, IV remains bb in place. 04:15 CXR XRAY In Process Unspecified. EDMS 04:25 Occult Blood--Ancillary Sent. ds4 Administered Medications: 02:39 Drug: ProTONIX 8 mg/hr Route: IV; Rate: 25 ml/hr; Site: right antecubital; bb 04:09 Follow up: IV Status: Infusion continued upon transfer bb 02:55 Drug: morphine 2 mg Route: IVP; Site: right antecubital; bb 04:08 Follow up: Response: No adverse reaction; Pain is decreased; RASS: Alert and Calm (0) bb 03:09 Drug: Zofran (Ondansetron) 4 mg Route: IVP; Site: right antecubital; bb 04:09 Follow up: Response: No adverse reaction bb 04:13 Drug: morphine 2 mg {Note: rass 0.} Route: IVP; Site: left hand; rv 04:47 Follow up: Response: No adverse reaction; Marked relief of symptoms; Pain is decreased; rv RASS: Alert and Calm (0) 06:30 Drug: morphine 2 mg {Note: rass 0.} Route: IVP; Site: left hand; rv 06:33 Follow up: Response: Medication administered at discharge. rv Medication: 06:08 Blood products: PRBCs X 1 unit given. See transfusion record. rv Point of Care Testing: Guaiac: 02:06 Stool Guaiac: Positive; Stool Hemoccult Control: Pass; bb Outcome: 04:05 Transferred by ground EMS to [facility], Transfer form completed. bb 04:05 Condition: stable 04:05 Instructed on the need for transfer. 04:13 ER care complete, transfer ordered by MD. [email or web address] 06:34 Patient left the ED. rv Signatures: Dispatcher [employer] EDMS Ashleigh Sky RN RN Jenna Willis ds1 Esha Woods RN RN bb Isaac Sandra ds4 Alejandro Marinelli MD MD tw4 Grupo Gaitan RN RN rv Luis Wetzel RN RN rr5
--- NOTE | 2019-08-10 04:14 | EDPHYS ---
Physician Documentation [facility] Name: Kimberley Whitmore Age: 43 yrs Sex: Female : 1975 Arrival Date: 08/10/2019 Time: 01:45 Bed 4 Private MD: ED Physician Alejandro Marinelli HPI: 08/09 03:02 This 43 yrs old Female presents to ER via EMS with complaints of Vomiting. tw4 03:02 The patient presents to the emergency department with nausea, vomiting. The patient tw4 presents to the emergency department with vomiting, described as blood streaked. Onset: The symptoms/episode began/occurred yesterday. Possible causes: unknown. The symptoms are aggravated by nothing. The symptoms are alleviated by. Associated signs and symptoms: The patient has no apparent associated signs or symptoms. Severity of symptoms: At their worst the symptoms were moderate in the emergency department the symptoms are unchanged. The patient has not experienced similar symptoms in the past. 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 - Social history:: Smoking status: Patient reports the use of cigarette tobacco products, smokes one-half pack cigarettes per day, Patient uses street drugs, marijuana, Patient/guardian denies using alcohol. ROS: 03:02 Constitutional: Negative for fever, chills, and weight loss, Eyes: Negative for injury, tw4 pain, redness, and discharge, Cardiovascular: Negative for chest pain, palpitations, and edema, Respiratory: Negative for shortness of breath, cough, wheezing, and pleuritic chest pain. 03:02 Back: Negative for injury and pain, MS/Extremity: Negative for injury and deformity, Skin: Negative for injury, rash, and discoloration, Neuro: Negative for headache, weakness, numbness, tingling, and seizure. 03:02 Abdomen/GI: Positive for abdominal pain, nausea and vomiting, nausea, vomiting, hematemesis, Negative for nausea, vomiting, and diarrhea, constipation, abdominal cramps, abdominal distension, anorexia, dysphagia, black/tarry stool, rectal pain, rectal bleeding, bowel incontinence, flatulence. Exam: 03:02 Constitutional: This is a well developed, well nourished patient who is awake, alert, tw4 and in no acute distress. Head/Face: Normocephalic, atraumatic. Chest/axilla: Normal chest wall appearance and motion. Nontender with no deformity. No lesions are appreciated. Cardiovascular: Regular rate and rhythm with a normal S1 and S2. No gallops, murmurs, or rubs. Normal PMI, no JVD. No pulse deficits. Respiratory: Lungs have equal breath sounds bilaterally, clear to auscultation and percussion. No rales, rhonchi or wheezes noted. No increased work of breathing, no retractions or nasal flaring. Abdomen/GI: Soft, non-tender, with normal bowel sounds. No distension or tympany. No guarding or rebound. No evidence of tenderness throughout. Back: No spinal tenderness. No costovertebral tenderness. Full range of motion. Skin: Warm, dry with normal turgor. Normal color with no rashes, no lesions, and no evidence of cellulitis. MS/ Extremity: Pulses equal, no cyanosis. Neurovascular intact. Full, normal range of motion. Neuro: Awake and alert, GCS 15, oriented to person, place, time, and situation. Cranial nerves II-XII grossly intact. Motor strength 5/5 in all extremities. Sensory grossly intact. Cerebellar exam normal. Normal gait. Vital Signs: 01:40 BP 107 / 80; Pulse 72; Resp 28; Temp 97.4(TE); Pulse Ox 100% on R/A; Weight 79.38 kg fc (R); Height 5 ft. 5 in. (165.10 cm) (R); Pain 8/10; 03:16 BP 120 / 79; Pulse 69; Resp 22 S; Pulse Ox 100% ; bb 04:09 BP 123 / 73; Pulse 79; Resp 22 S; Pulse Ox 100% on R/A; bb 04:30 BP 133 / 95; Pulse 66; Resp 16; Pulse Ox 98% on R/A; rv 05:00 BP 120 / 95; Pulse 64; Resp 18; Temp 97.9; Pulse Ox 100% on R/A; rv 05:30 BP 127 / 85; Pulse 68; Resp 17; Temp 97.9; Pulse Ox 100% on R/A; rv 06:00 BP 125 / 83; Pulse 66; Resp 18; Temp 98; Pulse Ox 100% on R/A; rv 01:40 Body Mass Index 29.12 (79.38 kg, 165.10 cm) fc MDM: 01:56 Patient medically screened. 03:02 Differential diagnosis: Nonspecific abd pain, gastritis, cholecystitis, viral tw4 gastroenteritis, esophageal varices. Data reviewed: vital signs, nurses notes. Counseling: I had a detailed discussion with the patient and/or guardian regarding: the historical points, exam findings, and any diagnostic results supporting the discharge/admit diagnosis. 04:13 Data interpreted: Pulse oximetry: Interpretation: normal. ED course: Will transfuse tw4 patient 2 U PRBC's and transfer to [facility] for higher level of care. 04:14 ED course: D/W Dr Mayfield who agrees with treatment plan and admission \T\[id number]. 08/09 01:58 Order name: Basic Metabolic Panel; Complete Time: 03:41 08/09 01:58 Order name: CBC with Diff; Complete Time: 02:40 08/09 02:40 Interpretation: Normal except: WBC 5.7; RBC 2.30; HGB 6.3; HCT 19.8. 08/09 01:58 Order name: Creatinine for Radiology; Complete Time: 02:40 08/09 01:58 Order name: Hepatic Function; Complete Time: 03:41 08/09 01:58 Order name: Lipase; Complete Time: 03:41 08/09 01:58 Order name: PT-INR; Complete Time: 02:40 08/09 01:58 Order name: Ptt, Activated; Complete Time: 02:40 08/09 01:58 Order name: Type And Screen 08/09 02:12 Order name: Occult Blood--Ancillary 08/09 03:44 Order name: CXR XRAY 08/09 04:31 Order name: Packed RBC Leukored EDMS 08/09 01:58 Order name: IV Saline Lock; Complete Time: 02:00 tw4 08/09 01:58 Order name: Labs collected and sent; Complete Time: 02:00 tw4 08/09 02:18 Order name: Straight Cath; Complete Time: 02:30 ds4 08/09 03:44 Order name: Transfuse; Complete Time: 05:27 tw4 Administered Medications: 02:39 Drug: ProTONIX 8 mg/hr Route: IV; Rate: 25 ml/hr; Site: right antecubital; bb 04:09 Follow up: IV Status: Infusion continued upon transfer bb 02:55 Drug: morphine 2 mg Route: IVP; Site: right antecubital; bb 04:08 Follow up: Response: No adverse reaction; Pain is decreased; RASS: Alert and Calm (0) bb 03:09 Drug: Zofran (Ondansetron) 4 mg Route: IVP; Site: right antecubital; bb 04:09 Follow up: Response: No adverse reaction bb 04:13 Drug: morphine 2 mg {Note: rass 0.} Route: IVP; Site: left hand; rv 04:47 Follow up: Response: No adverse reaction; Marked relief of symptoms; Pain is decreased; rv RASS: Alert and Calm (0) 06:30 Drug: morphine 2 mg {Note: rass 0.} Route: IVP; Site: left hand; rv 06:33 Follow up: Response: Medication administered at discharge. rv Point of Care Testing: Guaiac: 02:06 Stool Guaiac: Positive; Stool Hemoccult Control: Pass; bb Disposition: 08/10/19 04:13 Transfer ordered to [facility]. Diagnosis are Gastrointestinal hemorrhage, unspecified, Anemia in chronic diseases classified elsewhere. - Reason for transfer: Higher level of care. - Accepting physician is Dr Mayfield. - Condition is Stable. - Problem is an ongoing problem. - Symptoms are unchanged. Signatures: Dispatcher [employer] EDMS Ashleigh Sky RN RN Esha Woods RN RN Isaac Rome ds4 Alejandro Marinelli MD MD tw4 Grupo Gaitan RN RN rv Corrections: (The following items were deleted from the chart) 06:34 04:13 08/10/2019 04:13 Transfer ordered to [facility]. rv Diagnosis is Gastrointestinal hemorrhage, unspecified; Anemia in chronic diseases classified elsewhere. Reason for transfer: Higher level of care. Accepting physician is Dr Mayfield. Condition is Stable. Problem is an ongoing problem. Symptoms are unchanged. tw4
[2019-08-10] MEDS ORDERED: NA CHLORIDE 0.9% 500 ML ONE (04:27)
[2019-08-10 06:46] VITALS: O2SAT 100
[2019-08-10 06:48] VITALS: BP 125/83; TEMP 98
--- NOTE | 2019-08-10 11:40 | RAD REPORT ---
EXAM DESCRIPTION: RAD - Chest Single View - 08/10/2019 4:14 am CLINICAL HISTORY: vomiting Chest pain. COMPARISON: Chest Single View dated 08/05/2019; Chest Single View dated 07/23/2019 FINDINGS: Portable technique limits examination quality. The lungs are grossly clear. The heart is normal in size. No displaced fractures. IMPRESSION: No acute intrathoracic process suspected.
== END 2019-08-10 06:34 | disposition short-term general hospital (02) ==
LOC: ER 01:44
PROC: 30233N1 Transfusion of Nonautologous Red Blood Cells into Peripheral Vein, Percutaneous Approach (ICD-10-PCS; principal; 2019-08-10)
DX: K92.2 Gastrointestinal hemorrhage, unspecified (principal); D63.8 Anemia in other chronic diseases classified elsewhere; Z88.1 Allergy status to other antibiotic agents; I10 Essential (primary) hypertension
CPT/HCPCS: 36430; P9021; 36415; 71045; 80048; 80076; 82272; 83690; 85025; 85610; 85730; 86850; 86900; 86901; 96365; 96375; 99285; C9113; J2270; J2405; J7030; J7040; P9016